=== PATIENT | female | born 1930 | race Caucasian/White ===

== ENCOUNTER 2017-12-18 13:17 | Observation (INO) | payer MEDICARE, MEDICAID ==
[~2017-12-18] VITALS: Ht 162.6 cm; Wt 72.3 kg
[~2017-12-18 13:17] MED LIST: ACET-461 PO; ALBU17AE3; ALBU2.5V4 IH; ALEN70TA47 PO; ALN10T; ALPR.25T; ALPR0.25 PO; AMLO2.5T PO; AMLO5TAB2 GT; AMLO5TAB2 PO; AMLO5TAB4 PO; AMOX-355 PO; AZIT250T PO; BUSP10TA95 PO; CALC-656 PO; CEFT1VIA58 IM; CHOL100011 PO; CITA10TA; CITA20TA4 PO; CITA20TA7 PO; CLD600T; DIPH25TA82 PO; DNPZ10T PO; DOCU100T7 PO; DONE10TA41 PO; DORZ10DR24 OU; DORZ10DR6 OU; ENAL10TA PO; ENAL20TA; ENLP10T GT; ENLP10T PO; FLC1T PO; FOLI0.8T PO; FOLI1TAB24 PO; GUAI-370; GUAI400T71 PO; GUAI600T43 PO; HCT25T PO; HYDR25TA4 PO; KETO75CA; LATA2.5D19 OU; LATA2.5D5 OU; LEVO750T6; MEMA10TA PO; MEMA28CA PO; METH2.5T PO; METO-370 PO; METO50TA7 PO; MTX2.5T PO; MULT-608 PO; NF-SOLIF5T PO; POLY10DR OP; PRED5TAB; SOLI5TAB4 PO; TRAM50TA2 PO; TROS20TA3 PO
--- OUTSIDE RECORDS SUMMARY | 2017-12-18 13:23 | XMS REPORT | Continuity of Care Document ---
Author Author [facility] Organization [facility] Address Unknown Phone Unavailable Allergies Active Description Code Type Severity Reaction Onset Reported/Identified Relationship to Patient Clinical Status Yes meperidine [id number] Drug Allergy Mild N/A 01/27/2010 Medications There is no data. Problems Date Dx Coded Attending Type Code Diagnosis Diagnosed By 03/08/2015 LLOYD MATHIS MD Ot 038.42 03/08/2015 LLOYD MATHIS MD Ot 275.2 03/08/2015 LLOYD MATHIS MD Ot 276.8 03/08/2015 LLOYD MATHIS MD Ot 294.20 03/08/2015 LLOYD MATHIS MD Ot 300.00 03/08/2015 LLOYD MATHIS MD Ot 362.50 03/08/2015 LLOYD MATHIS MD Ot 365.9 03/08/2015 LLOYD MATHIS MD Ot 366.9 03/08/2015 LLOYD MATHIS MD Ot 401.9 03/08/2015 LLOYD MATHIS MD Ot 424.0 03/08/2015 LLOYD MATHIS MD Ot 596.51 03/08/2015 LLOYD MATHIS MD Ot 599.0 03/08/2015 LLOYD MATHIS MD Ot 682.9 03/08/2015 LLOYD MATHIS MD Ot 714.0 03/08/2015 LLOYD MATHIS MD Ot 733.00 03/08/2015 LLOYD MATHIS MD Ot 995.91 03/09/2015 Ot 443.9 03/09/2015 Ot 707.15 03/12/2015 LLOYD MATHIS MD Ot 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 03/12/2015 LLOYD MATHIS MD Ot 041.11 METHICILLIN SUSCEPTIBLE STAPHYLOCOCCUS A 03/12/2015 LLOYD MATHIS MD Ot 275.2 DIS MAGNESIUM METABOLISM 03/12/2015 LLOYD MATHIS MD Ot 276.69 OTHER FLUID OVERLOAD 03/12/2015 LLOYD MATHIS MD Ot 276.8 HYPOPOTASSEMIA 03/12/2015 LLOYD MATHIS MD Ot 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 03/12/2015 LLOYD MATHIS MD Ot 294.20 03/12/2015 LLOYD MATHIS MD Ot 300.00 ANXIETY STATE NOS 03/12/2015 LLOYD MATHIS MD Ot 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 03/12/2015 LLOYD MATHIS MD Ot 362.50 MACULAR DEGENERATION NOS 03/12/2015 LLOYD MATHIS MD Ot 365.9 GLAUCOMA NOS 03/12/2015 LLOYD MATHIS MD Ot 366.9 CATARACT NOS 03/12/2015 LLOYD MATHIS MD Ot 401.9 HYPERTENSION NOS 03/12/2015 LLOYD MATHIS MD Ot 424.0 MITRAL VALVE DISORDER 03/12/2015 LLOYD MATHIS MD Ot 596.51 HYPERTONICITY OF BLADDER 03/12/2015 LLOYD MATHIS MD Ot 599.0 URIN TRACT INFECTION NOS 03/12/2015 LLOYD MATHIS MD Ot 682.6 CELLULITIS OF LEG 03/12/2015 LLOYD MATHIS MD Ot 682.7 03/12/2015 LLOYD MATHIS MD Ot 682.9 03/12/2015 LLOYD MATHIS MD Ot 714.0 RHEUMATOID ARTHRITIS 03/12/2015 LLOYD MATHIS MD Ot 733.00 OSTEOPOROSIS NOS 03/12/2015 LLOYD MATHIS MD Ot 786.09 03/12/2015 LLOYD MATHIS MD Ot 995.91 SEPSIS 03/12/2015 LLOYD MATHIS MD Ot V43.3 04/20/2015 SHANICE RODRIGUEZ MD Ot 440.23 ATHEROSCL MATCH-E-BE-NASH-SHE-WISH BAND ARTER EXTREMITIES W ULC 04/20/2015 SHANICE RODRIGUEZ MD Ot 707.15 ULCER OF OTHER PART OF FOOT 04/20/2015 SHANICE RODRIGUEZ MD Ot 735.4 OTHER HAMMER TOE 04/20/2015 SHANICE RODRIGUEZ MD Ot 440.23 04/20/2015 SHANICE RODRIGUEZ MD Ot 707.15 04/20/2015 SHANICE RDORIGUEZ MD Ot 735.4 05/08/2015 Ot 443.9 05/08/2015 Ot 707.15 11/12/2015 LLOYD MATHIS MD Ot A41.9 11/12/2015 LLOYD MATHIS MD Ot B96.20 UNSP ESCHERICHIA COLI THE CAUSE OF DI 11/12/2015 LLOYD MATHIS MD Ot F02.80 DEMENTIA IN OTH DISEASES CLASSD ELSWHR W 11/12/2015 DEL MEYERS, LLOYD Patten Ot G30.9 ALZHEIMER'S DISEASE, UNSPECIFIED 11/12/2015 DEL MEYERS, LLOYD Patten Ot I10 ESSENTIAL (PRIMARY) HYPERTENSION 11/12/2015 DEL MEYERS, LLOYD Patten Ot I34.1 NONRHEUMATIC MITRAL (VALVE) PROLAPSE 11/12/2015 DEL MEYERS, LLOYD Patten Ot M06.9 RHEUMATOID ARTHRITIS, UNSPECIFIED 11/12/2015 DEL MEYERS, LLOYD Patten Ot N39.0 URINARY TRACT INFECTION, SITE NOT SPECIF 11/13/2015 DEL MEYERS, LLOYD Patten Ot A41.9 11/13/2015 DEL MEYERS, LLOYD Patten Ot F02.80 11/13/2015 DEL MEYERS, LLOYD Patten Ot G30.9 11/13/2015 DEL MEYERS, LLOYD Patten Ot I10 11/13/2015 DEL MEYERS, LLOYD Patten Ot I34.1 11/13/2015 DEL MEYERS, LLOYD Patten Ot M06.9 11/13/2015 DEL MEYERS, LLOYD Patten Ot N39.0 11/13/2015 DEL MEYERS, LLOYD Patten Ot A41.9 11/13/2015 DEL MEYERS, LLOYD Patten Ot F02.80 11/13/2015 DEL MEYERS, LLOYD Patten Ot G30.9 11/13/2015 DEL MEYERS, LLOYD Patten Ot I10 11/13/2015 DEL MEYERS, LLOYD Patten Ot I34.1 11/13/2015 DEL MEYERS, LLOYD Patten Ot M06.9 11/13/2015 DEL MEYERS, LLOYD Patten Ot N39.0 02/22/2016 HUGO MEYERS, ERIN T Ot I44.7 LEFT BUNDLE-BRANCH BLOCK, UNSPECIFIED 02/22/2016 HUGO MEYERS, ERIN T Ot 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 02/22/2016 HUGO MEYERS, ERIN T Ot J20.9 ACUTE BRONCHITIS, UNSPECIFIED 02/22/2016 HUGO MEYERS, ERIN T Ot R09.02 HYPOXEMIA 02/25/2016 HUGO MEYERS, ERIN T Ot I44.7 02/25/2016 HUGO MEYERS, ERIN T Ot I73.00 02/25/2016 HUGO MEYERS, ERIN T Ot J20.9 02/25/2016 HUGO MEYERS, ERIN T Ot R09.02 08/13/2016 Ot V76.12 OTH SCREEN MAMMO-MALIGN NEOPLASM OF NAYELY 08/13/2016 Ot 429.3 CARDIOMEGALY 08/13/2016 Ot 518.89 OTHER DISEASES OF LUNG, NEC 08/13/2016 LLOYD MATHIS MD Ot V76.12 OTH SCREEN MAMMO-MALIGN NEOPLASM OF NAYELY 08/13/2016 LLOYD MATHIS MD Ot 331.9 CEREB DEGENERATION NOS 08/13/2016 LLOYD MATHIS MD Ot V15.88 HISTORY OF FALL 08/13/2016 Ot 443.9 PERIPH VASCULAR DIS NOS 08/13/2016 Ot 707.15 ULCER OF OTHER PART OF FOOT 08/13/2016 Ot V76.12 OTH SCREEN MAMMO-MALIGN NEOPLASM OF NAYELY 08/13/2016 Ot 429.3 CARDIOMEGALY 08/13/2016 Ot 518.89 OTHER DISEASES OF LUNG, NEC 08/13/2016 LLOYD MATHIS MD Ot V76.12 OTH SCREEN MAMMO-MALIGN NEOPLASM OF NAYELY 08/13/2016 LLOYD MATHIS MD Ot 331.9 CEREB DEGENERATION NOS 08/13/2016 LLOYD MATHIS MD Ot V15.88 HISTORY OF FALL 08/13/2016 Ot 443.9 PERIPH VASCULAR DIS NOS 08/13/2016 Ot 707.15 ULCER OF OTHER PART OF FOOT 09/05/2016 LLOYD MATHIS MD Ot J44.9 CHRONIC OBSTRUCTIVE PULMONARY DISEASE, U 09/10/2016 LLOYD MATHIS MD Ot J44.9 CHRONIC OBSTRUCTIVE PULMONARY DISEASE, U 02/26/2017 LLOYD MATHIS MD Ot J44.9 CHRONIC OBSTRUCTIVE PULMONARY DISEASE, U Procedures Code Description Performed By Performed On 86.04 03/10/2015 Results There is no data. Encounters ACCT No. Visit Date/Time Discharge Status Pt. Type Provider Facility Loc./Unit Complaint [id number] 08/13/2016 09:51:00 08/13/2016 23:59:59 CLS Outpatient LLOYD MATHIS MD [facility] RT COPD [id number] 02/22/2016 14:19:00 02/22/2016 17:45:00 DIS Emergency ERIN ARIAS MD [facility] ER LOW O2 [id number] 11/11/2015 13:47:00 11/12/2015 13:00:00 DIS Inpatient LLOYD MATHIS MD [facility] 4TH UTI;FEVER [id number] 04/03/2015 13:05:00 04/20/2015 14:00:00 DIS Outpatient SHANICE RODRIGUEZ MD [facility] WOUNDCARE [id number] 03/06/2015 12:43:00 03/12/2015 15:10:00 DIS Inpatient LLOYD MATHIS MD [facility] SURGICAL SEPSIS UTI [id number] 10/20/2013 14:54:00 10/20/2013 23:59:59 CLS Outpatient LLOYD MATHIS MD [facility] RAD FALLS [id number] 07/25/2013 08:30:00 07/25/2013 23:59:59 CLS Outpatient LLOYD MATHIS MD [facility] RAD SCREENING [id number] 02/13/2015 11:55:00 Document Registration [id number] 01/20/2012 14:22:00 Document Registration [id number] 07/07/2011 10:53:00 Document Registration
[2017-12-18] MEDS ORDERED: LACTATED RINGERS 1,000 ML IV ONE (13:25)
--- NOTE | 2017-12-18 13:30 | ED General ---
General Stated Complaint: AMS Source of Information: Patient, EMS, Shelter Records Exam Limitations: Physical Impairments (clinical condition) History of Present Illness Date Seen by Provider: Dec 18, 2017 Time Seen by Provider: 13:18 Initial Comments Patient presents to ER by EMS with chief complaint that for the past week or so per nursing staff at the [place] [facility] she has been having us that he decline in function and last night she sat up in a chair talking to somebody was not there anymore. This is a change from baseline for her although she does have a history of late stage dementia. Patient has had an influenza test this morning at the [place] [facility] that was negative including her paperwork as well as blood work and urine drawn from the doctor's office yesterday. The urine showed budding yeast only and she was given a single dose of Diflucan. Patient is only able to give a very limited review of systems she has not pain anywhere nor does she feel like she needs to throw up. She does know what town she is from but not sure of her address her the name of the [place] [facility]. EMS reports the patient is having tremendous amount of pain in his vocalizations with any modest touch such as blood pressure cuff or when moving her from bed to gurney. Allergies and Home Medications Allergies Coded Allergies: meperidine (Unverified Allergy, Mild, 01/27/10) Home Medications Acetaminophen 500 Mg Tablet, 500 MG PO 0800,1200,1600,2000, (Reported) Acetaminophen 500 Mg Tablet, 500-1,000 MG PO Q6H PRN for PAIN, (Reported) TAKES 1 TO 2 (500MG) TABLETS Albuterol Sulfate 2.5 Mg/3 Ml Vial.neb, 2.5 MG IH Q6H, #30 And every 2 hours as needed for wheezing or shortness of breath Prescribed by: ERIN NGUYEN on 02/22/161711 Alendronate Sodium 70 Mg Tablet, 70 MG PO WEEKLY ON THURSDAY, (Reported) Alprazolam 0.25 Mg Tablet, 0.25 MG PO Q8H PRN for ANXIETY, (Reported) Amlodipine Besylate 5 Mg Tablet, 5 MG PO DAILY, (Reported) Azithromycin 250 Mg Tablet, 250 MG PO DAILY, #4 Prescribed by: ERIN NGUYEN on 02/22/161711 Buspirone HCl 10 Mg Tablet, 10 MG PO BID, (Reported) Calcium Carbonate/Vitamin D3 1 Each Tablet, 1 TAB PO DAILY, (Reported) Ceftriaxone Sodium 1 Gm Vial, 1 GM IM DAILY, (Reported) STARTED 02/21/16 FOR A 7 DAY THERAPY Cholecalciferol 1,000 Unit Capsule, 1,000 UNIT PO DAILY, (Reported) Citalopram Hydrobromide 20 Mg Tablet, 20 MG PO DAILY, (Reported) Docusate Sodium 100 Mg Tablet, 100 MG PO DAILY, (Reported) Donepezil HCl 10 Mg Tablet, 10 MG PO HS, (Reported) Dorzolamide HCl/Timolol Maleat 10 Ml Drops, 1 DROP OU BID, (Reported) Enalapril Maleate 10 Mg Tablet, 10 MG PO BID, (Reported) Folic Acid 1 Mg Tablet, 1 MG PO DAILY, (Reported) Guaifenesin 600 Mg Tab.er.12h, 600 MG PO TID, (Reported) Guaifenesin 400 Mg Tablet, 400 MG PO Q4H PRN for CONGESTION, #30 Prescribed by: ERIN NGUYEN on 02/22/16 1712 Hydrochlorothiazide 25 Mg Tablet, 25 MG PO DAILY, (Reported) Latanoprost 2.5 Ml Drops, 1 DROP OU HS, (Reported) Memantine HCl 28 Mg Cap.spr.24, 28 MG PO DAILY, (Reported) Methotrexate Sodium 2.5 Mg Tablet, 15 MG PO WEEKLY ON THURSDAY, (Reported) TAKES 6 (2.5 MG) TABLETS Metoprolol Succinate 50 Mg Tab.er.24h, 50 MG PO DAILY, (Reported) Multivitamins 1 Tab Tablet, 1 TAB PO DAILY, (Reported) Polymyxin B Sulfate/Tmp 10 Ml Drops, OP UD, (Reported) FOUR TIMES DAILY X3 DAYS PRIOR TO EYE INJECTION, THEN DIRECTED. Solifenacin Succinate 5 Mg Tablet, 5 MG PO DAILY, (Reported) Tramadol HCl 50 Mg Tablet, 25-50 MG PO Q8H PRN for PAIN, (Reported) TAKES 1/2 TO 1 OF A (50 MG) TABLET Constitutional: No chills, No fever, malaise, No weakness EENTM: No hearing loss, No ear pain Respiratory: No cough, No short of breath Cardiovascular: No chest pain, No palpitations Gastrointestinal: No constipation, No diarrhea, No nausea Genitourinary: No discharge, No dysuria Past Orpbwif-Arnajg-Ypwzti Hx Immunizations Up To Date Tetanus Booster (TDap): Unknown Date of Pneumonia Vaccine: Jul 31, 2008 Date of Influenza Vaccine: Sep 16, 2015 Seasonal Allergies Seasonal Allergies: No Surgeries Surgeries: Eye Surgery Cardiovascular Cardiac Disorders: Hypertension, Valvular Heart Disease Neurological Neurological Disorders: Dementia Reproductive System Hx Reproductive Disorders: No Female Reproductive Disorders: Denies Genitourinary Genitourinary Disorders: Bladder Infection, UTI-Chronic Gastrointestinal Gastrointestinal Disorders: Chronic Constipation Musculoskeletal Musculoskeletal Disorders: Osteoporosis, Rheumatoid Arthritis HEENT HEENT Disorders: Macular Degeneration, Glaucoma Loss of Vision: Denies Hearing Impairment: Denies Psychosocial Behavioral Health Disorders: Depression Family Medical History Significant Family History: No Pertinent Family Hx Family Medial History: Patient reports no known family medical history. Physical Exam-Suspected Sepsis Physical Exam Vital Signs Vital Sign - Last 12Hours 12/18/17 14:10 Temp 97.9 Pulse 70 Resp 18 B/P (MAP) 161/72 (101) Pulse Ox 95 Capillary Refill : General Appearance: Thin (edontulous) Eyes: Bilateral Eye Normal Inspection, Bilateral Eye PERRL, Bilateral Eye EOMI HEENT: PERRL/EOMI, TMs Normal, Normal ENT Inspection, Pharynx Normal (mucous membranes dry) Neck: Full Range of Motion, Normal Inspection, Non Tender, Supple Respiratory: Chest Non Tender, Lungs Clear, Normal Breath Sounds, No Accessory Muscle Use, No Respiratory Distress Cardiovascular: Regular Rate, Rhythm, No Edema Gastrointestinal: Normal Bowel Sounds, No Organomegaly Extremity: Normal Capillary Refill, No Pedal Edema Neurologic/Psychiatric: Alert, Oriented x3 Skin: normal color, warm/dry Focused Exam Evaluation Lactate Level Laboratory Tests 12/18/17 13:25: Lactic Acid Level 1.33 Lactic Acid Level Laboratory Tests Test 12/18/17 13:25 Lactic Acid Level 1.33 MMOL/L (0.50-2.00) Progress/Results/Core Measures Suspected Sepsis SIRS Temperature: Pulse: Respiratory Rate: Laboratory Tests 12/18/17 13:25: White Blood Count 9.1 Blood Pressure / Mean: Laboratory Tests 12/18/17 13:25: Lactic Acid Level 1.33 Laboratory Tests 12/18/17 13:25: Creatinine 1.01, Platelet Count 228, Total Bilirubin 0.4 Results/Orders Lab Results Laboratory Tests Test 12/18/17 13:25 12/18/17 13:35 Range/Units White Blood Count 9.1 4.3-11.0 10^3/uL Red Blood Count 3.92 L 4.35-5.85 10^6/uL Hemoglobin 12.3 11.5-16.0 G/DL Hematocrit 39 35-52 % Mean Corpuscular Volume 99 80-99 FL Mean Corpuscular Hemoglobin 31 25-34 PG Mean Corpuscular Hemoglobin Concent 32 32-36 G/DL Red Cell Distribution Width 17.0 H 10.0-14.5 % Platelet Count 228 130-400 10^3/uL Mean Platelet Volume 9.5 7.4-10.4 FL Neutrophils (%) (Auto) 75 42-75 % Lymphocytes (%) (Auto) 16 12-44 % Monocytes (%) (Auto) 7 0-12 % Eosinophils (%) (Auto) 1 0-10 % Basophils (%) (Auto) 0 0-10 % Neutrophils # (Auto) 6.9 1.8-7.8 X 10^3 Lymphocytes # (Auto) 1.5 1.0-4.0 X 10^3 Monocytes # (Auto) 0.7 0.0-1.0 X 10^3 Eosinophils # (Auto) 0.1 0.0-0.3 10^3/uL Basophils # (Auto) 0.0 0.0-0.1 10^3/uL Sodium Level 141 135-145 MMOL/L Potassium Level 5.1 H 3.6-5.0 MMOL/L Chloride Level 105 98-107 MMOL/L Carbon Dioxide Level 25 21-32 MMOL/L Anion Gap 11 5-14 MMOL/L Blood Urea Nitrogen 38 H 7-18 MG/DL Creatinine 1.01 0.60-1.30 MG/DL Estimat Glomerular Filtration Rate 52 BUN/Creatinine Ratio 38 Glucose Level 98 70-105 MG/DL Lactic Acid Level 1.33 0.50-2.00 MMOL/L Calcium Level 10.0 8.5-10.1 MG/DL Total Bilirubin 0.4 0.1-1.0 MG/DL Aspartate Amino Transf (AST/SGOT) 16 5-34 U/L Alanine Aminotransferase (ALT/SGPT) 12 0-55 U/L Alkaline Phosphatase 73 40-136 U/L Total Protein 6.5 6.4-8.2 GM/DL Albumin 3.2 3.2-4.5 GM/DL Urine Color YELLOW Urine Clarity CLOUDY H Urine pH 6 5-9 Urine Specific Gantt 1.015 L 1.016-1.022 Urine Protein 2+ H NEGATIVE Urine Glucose (UA) NEGATIVE NEGATIVE Urine Ketones NEGATIVE NEGATIVE Urine Nitrite NEGATIVE NEGATIVE Urine Bilirubin NEGATIVE NEGATIVE Urine Urobilinogen NORMAL NORMAL MG/DL Urine Leukocyte Esterase 3+ H NEGATIVE Urine RBC (Auto) 5+ H NEGATIVE Urine RBC >100 H /HPF Urine WBC TNTC H /HPF Urine Crystals NONE /LPF Urine Bacteria MODERATE H /HPF Urine Casts NONE /LPF Urine Mucus NEGATIVE /LPF Urine Culture Indicated YES Micro Results Microbiology 12/18/17 Influenza Types A,B Antigen (BUD) - Final, Complete My Orders Orders - CHRISTO PRASAD Cbc With Automated Diff (12/18/17 13:25) Comprehensive Metabolic Panel (12/18/17 13:25) Lactic Acid Analyzer (12/18/17 13:25) Ua Culture If Indicated (12/18/17 13:25) Blood Culture (12/18/17 13:25) Influenza A And B Antigens (12/18/17 13:25) Chest 1 View, Ap/Pa Only (12/18/17 13:25) Saline Lock/Iv-Start (12/18/17 13:25) Lactated Ringers (Lr 1000 Ml Iv Solution (12/18/17 13:25) Urine Culture (12/18/17 13:35) Medications Given in ED Current Medications Medications Dose Ordered Sig/Corby Route Start Time Stop Time Status Last Admin Dose Admin Lactated Ringer's 1,000 ml @ 0 mls/hr Q0M ONCE IV 12/18/17 13:25 12/18/17 13:27 DC 12/18/17 13:43 0 MLS/HR Vital Signs/I&O Vital Sign - Last 12Hours 12/18/17 14:10 Temp 97.9 Pulse 70 Resp 18 B/P (MAP) 161/72 (101) Pulse Ox 95 Capillary Refill : Departure Communication (Admissions) Time/Spoke to Admitting Phy: 17:20 Communication Discussed the case with Dr. Nicole and she agrees with Rocephin and observation stay. Impression Impression: Primary Impression: Urinary tract infection Qualified Codes: N30.00 - Acute cystitis without hematuria Additional Impression: Delirium Disposition: ADMITTED INPATIENT Condition: Stable Admissions Decision to Admit Reason: Admit from ER (General) Decision to Admit/Date: Dec 18, 2017 Time/Decision to Admit Time: 17:21 Departure-Patient Inst. Referrals: LLOYD MATHIS MD (PCP/Family) Primary Care Physician Copy Copies To 1: LLOYD MATHIS MD, TITUS J Dec 18, 2017 13:30
[2017-12-18 13:43] LABS: BASOPHILS % (AUTO) 0 % (0-10); EOSINOPHILS # (AUTO) 0.1 10^3/uL (0.0-0.3); EOSINOPHILS % (AUTO) 1 % (0-10); HEMATOCRIT 39 % (35-52); HEMOGLOBIN 12.3 G/DL (11.5-16.0); LYMPHOCYTES # (AUTO) 1.5 X 10^3 (1.0-4.0); LYMPHOCYTES % (AUTO) 16 % (12-44); MEAN CORPUSCULAR HEMOGLOBIN 31 PG (25-34); MEAN CORPUSCULAR HGB CONC 32 G/DL (32-36); MEAN CORPUSCULAR VOLUME 99 FL (80-99); MEAN PLATELET VOLUME 9.5 FL (7.4-10.4); MONOCYTES # (AUTO) 0.7 X 10^3 (0.0-1.0); MONOCYTES % (AUTO) 7 % (0-12); NEUTROPHILS # (AUTO) 6.9 X 10^3 (1.8-7.8); NEUTROPHILS % (AUTO) 75 % (42-75); PLATELET COUNT 228 10^3/uL (130-400); RED BLOOD COUNT 3.92 10^6/uL (4.35-5.85); WHITE BLOOD COUNT 9.1 10^3/uL (4.3-11.0)
[2017-12-18 13:53] LABS: BACTERIA,URINE MODERATE /HPF; BILIRUBIN,URINE NEGATIVE (NEGATIVE); CLARITY,URINE CLOUDY; COLOR,URINE YELLOW; GLUCOSE, URINE (UA) NEGATIVE (NEGATIVE); KETONES,URINE NEGATIVE (NEGATIVE); LEUKOCYTE ESTERASE ,URINE 3+ (NEGATIVE); NITRITE,URINE NEGATIVE (NEGATIVE); PH,URINE 6 (5-9); PROTEIN,URINE 2+ (NEGATIVE); RBC,URINE >100 /HPF; UROBILINOGEN,URINE NORMAL (NORMAL); WBC,URINE TNTC /HPF
[2017-12-18 14:11] LABS: ALBUMIN 3.2 GM/DL (3.2-4.5); BILIRUBIN,TOTAL 0.4 MG/DL (0.1-1.0); CREATININE SERUM 1.01 MG/DL (0.60-1.30); POTASSIUM 5.1 MMOL/L (3.6-5.0); TOTAL PROTEIN 6.5 GM/DL (6.4-8.2)
--- NOTE | 2017-12-18 14:51 | Diagnostic Imaging Report ---
INDICATION: Altered mental status. EXAMINATION: Portable chest at 2:32 p.m. FINDINGS: Heart size and pulmonary vascularity are normal. Lungs are clear. There are no effusions or pneumothoraces. There is advanced degenerative change in both shoulders, worse on the right than on the left. IMPRESSION: Severe degenerative changes of both shoulders. No acute abnormality is seen in the chest. Dictated by: Dictated on workstation # [id number]
--- OUTSIDE RECORDS SUMMARY | 2017-12-18 17:48 | XMS REPORT | Continuity of Care Document ---
Author Author [facility] Organization [facility] Address Unknown Phone Unavailable Allergies Active Description Code Type Severity Reaction Onset Reported/Identified Relationship to Patient Clinical Status Yes meperidine [id number] Drug Allergy Mild N/A 01/27/2010 Medications There [...] 04/20/2015 SHANICE RODRIGUEZ MD Ot 440.23 ATHEROSCL OSAGE ARTER EXTREMITIES W ULC 04/20/2015 SHANICE RODRIGUEZ MD Ot 707.15 ULCER OF OTHER PART OF FOOT 04/20/2015 SHANICE RODRIGUEZ MD Ot 735.4 OTHER HAMMER TOE 04/20/2015 SHANICE RODRIGUEZ MD Ot 440.23 04/20/2015 SHANICE RODRIGUEZ MD Ot 707.15 04/20/2015 SHANICE RODRIGUEZ MD Ot 735.4 05/08/2015 Ot 443.9 05/08/2015 [...] DEL MEYERS, LLOYD Patten Ot A41.9 11/13/2015 DLE MEYERS, LLOYD Patten Ot F02.80 11/13/2015 DEL [...] MEYERS, ERIN T Ot I44.7 02/25/2016 HUGO MEEYRS, ERIN T Ot I73.00 02/25/2016 HUGO MEYERS, [...] Performed By Performed On 86.04 03/10/2015 Results Test Result Range Complete blood count (CBC) with automated white blood cell (WBC) differential - 12/18/17 13:25 Blood leukocytes automated count (number/volume) 9.1 10*3/uL 4.3-11.0 Blood erythrocytes automated count (number/volume) 3.92 10*6/uL 4.35-5.85 Venous blood hemoglobin measurement (mass/volume) 12.3 g/dL 11.5-16.0 Blood hematocrit (volume fraction) 39 % 35-52 Automated erythrocyte mean corpuscular volume 99 [foz_us] 80-99 Automated erythrocyte mean corpuscular hemoglobin (mass per erythrocyte) 31 pg 25-34 Automated erythrocyte mean corpuscular hemoglobin concentration measurement ( mass/volume) 32 g/dL 32-36 Automated erythrocyte distribution width ratio 17.0 % 10.0-14.5 Automated blood platelet count (count/volume) 228 10*3/uL 130-400 Automated blood platelet mean volume measurement 9.5 [foz_us] 7.4-10.4 Automated blood neutrophils/100 leukocytes 75 % 42-75 Automated blood lymphocytes/100 leukocytes 16 % 12-44 Blood monocytes/100 leukocytes 7 % 0-12 Automated blood eosinophils/100 leukocytes 1 % 0-10 Automated blood basophils/100 leukocytes 0 % 0-10 Blood neutrophils automated count (number/volume) 6.9 10*3 1.8-7.8 Blood lymphocytes automated count (number/volume) 1.5 10*3 1.0-4.0 Blood monocytes automated count (number/volume) 0.7 10*3 0.0-1.0 Automated eosinophil count 0.1 10*3/uL 0.0-0.3 Automated blood basophil count (count/volume) 0.0 10*3/uL 0.0-0.1 Blood lactic acid measurement (moles/volume) - 12/18/17 13:25 Blood lactic acid measurement (moles/volume) 1.33 mmol/L 0.50-2.00 Comprehensive metabolic panel - 12/18/17 13:25 Serum or plasma sodium measurement (moles/volume) 141 mmol/L 135-145 Serum or plasma potassium measurement (moles/volume) 5.1 mmol/L 3.6-5.0 Serum or plasma chloride measurement (moles/volume) 105 mmol/L 98-107 Carbon dioxide 25 mmol/L 21-32 Serum or plasma anion gap determination (moles/volume) 11 mmol/L 5-14 Serum or plasma urea nitrogen measurement (mass/volume) 38 mg/dL 7-18 Serum or plasma creatinine measurement (mass/volume) 1.01 mg/dL 0.60-1.30 Serum or plasma urea nitrogen/creatinine mass ratio 38 NRG Serum or plasma creatinine measurement with calculation of estimated glomerular filtration rate 52 NRG Serum or plasma glucose measurement (mass/volume) 98 mg/dL 70-105 Serum or plasma calcium measurement (mass/volume) 10.0 mg/dL 8.5-10.1 Serum or plasma total bilirubin measurement (mass/volume) 0.4 mg/dL 0.1-1.0 Serum or plasma alkaline phosphatase measurement (enzymatic activity/volume) 73 U/L 40-136 Serum or plasma aspartate aminotransferase measurement (enzymatic activity/ volume) 16 U/L 5-34 Serum or plasma alanine aminotransferase measurement (enzymatic activity/volume ) 12 U/L 0-55 Serum or plasma protein measurement (mass/volume) 6.5 g/dL 6.4-8.2 Serum or plasma albumin measurement (mass/volume) 3.2 g/dL 3.2-4.5 Complete urinalysis with reflex to culture - 12/18/17 13:35 Urine color determination YELLOW NRG Urine clarity determination CLOUDY NRG Urine pH measurement by test strip 6 5-9 Specific gravity of urine by test strip 1.015 1.016- 1.022 Urine protein assay by test strip, semi-quantitative 2+ NEGATIVE Urine glucose detection by automated test strip NEGATIVE NEGATIVE Erythrocytes detection in urine sediment by light microscopy 5+ NEGATIVE Urine ketones detection by automated test strip NEGATIVE NEGATIVE Urine nitrite detection by test strip NEGATIVE NEGATIVE Urine total bilirubin detection by test strip NEGATIVE NEGATIVE Urine urobilinogen measurement by automated test strip (mass/volume) NORMAL NORMAL Urine leukocyte esterase detection by dipstick 3+ NEGATIVE Automated urine sediment erythrocyte count by microscopy (number/high power field) > [HPF] NRG Automated urine sediment leukocyte count by microscopy (number/high power field ) TNTC NRG Bacteria detection in urine sediment by light microscopy MODERATE NRG Crystals detection in urine sediment by light microscopy NONE NRG Casts detection in urine sediment by light microscopy NONE NRG Mucus detection in urine sediment by light microscopy NEGATIVE NRG Complete urinalysis with reflex to culture YES NRG Influenza virus A and B antigen detection - 12/18/17 13:41 FLU RESULT NEGATIVE FOR INFLUENZA A AND B ANTIGENS BY IA NRG Encounters ACCT No. Visit Date/Time Discharge Status Pt. Type Provider Facility Loc./Unit Complaint [id number] 08/13/2016 09:51:00 08/13/2016 23:59:59 CLS Outpatient DEL MEYERS, LLOYD Patten [facility] RT COPD [id number] 02/22/2016 14:19:00 02/22/2016 17:45:00 DIS Emergency HUGO MEYERS, ERIN De Luna [facility] ER LOW O2 [id number] 11/11/2015 13:47:00 11/12/2015 13:00:00 DIS Inpatient LLOYD MATHIS MD [facility] 4TH UTI;FEVER [id number] 04/03/2015 13:05:00 04/20/2015 14:00:00 DIS Outpatient SHANICE RODRIGUEZ MD [facility] WOUNDCARE [id number] 03/06/2015 12:43:00 03/12/2015 15:10:00 DIS Inpatient LLOYD MATHIS MD [facility] SURGICAL SEPSIS UTI [id number] 10/20/2013 14:54:00 10/20/2013 23:59:59 CLS Outpatient LLOYD MATHIS MD [facility] RAD FALLS [id number] 07/25/2013 08:30:00 07/25/2013 23:59:59 CLS Outpatient LLOYD MATHIS MD [facility] RAD SCREENING [id number] 12/18/2017 17:20:00 ACT Inpatient TAZ BOYD MD [facility] 4TH UTI,DELERIUM HYPOACTIVE [id number] 02/13/2015 11:55:00 Document Registration [id number] 01/20/2012 14:22:00 Document Registration [id number] 07/07/2011 10:53:00 Document Registration
[2017-12-18] MEDS ORDERED: FLUT1DIS26 IH (17:59)
[2017-12-18] MEDS ORDERED: MULT1TAB69 PO (17:59)
[2017-12-18] MEDS ORDERED: MENT4OIN TP (17:59)
[2017-12-18] MEDS ORDERED: DOCU100C37 PO (17:59)
[2017-12-18] MEDS ORDERED: CHOL10007 PO (17:59)
[2017-12-18] MEDS ORDERED: ENAL10TA75 PO (17:59)
[2017-12-18] MEDS ORDERED: LORA10TA7 PO (17:59)
[2017-12-18] MEDS ORDERED: GUAI5SYR PO (17:59)
[2017-12-18] MEDS ORDERED: DORZ10DR22 OU (17:59)
[2017-12-18] MEDS ORDERED: ALBU2.5V4 NEB (17:59)
[2017-12-18] MEDS ORDERED: CALC-654 PO (17:59)
[2017-12-18] MEDS ORDERED: LORA0.5T PO (17:59)
[2017-12-18] MEDS ORDERED: ACET-168 PO (17:59)
[2017-12-18] MEDS ORDERED: FLUC100T6 PO (18:00)
[2017-12-18] MEDS ORDERED: TRAM50TA2 PO (18:03)
[2017-12-18] MEDS ORDERED: ACETAMINOPHEN 500 MG TAB (TYLENOL) PO PRN (18:30)
[2017-12-18] MEDS ORDERED: CATHETER FLUSH 10 ML SYR IV PRN (18:30)
[2017-12-18] MEDS ORDERED: ONDANSETRON 4 MG/2 ML (SDV) Z0FRAN IV PRN (18:30)
[2017-12-18] MEDS: 1/2 NS IV SOLUTION 1,000 ML IV SCH (18:45)
[2017-12-18] MEDS: cefTRIAXone 1 GM/D5W 50 ML IVPB IV SCH ×2 (18:45)
[2017-12-18 19:54] VITALS: BP 153/75
[2017-12-19 00:10] VITALS: BP 140/65
[2017-12-19] MEDS: 1/2 NS IV SOLUTION 1,000 ML IV SCH ×5 (04:03→22:24)
[2017-12-19 04:05] VITALS: BP 159/71
[2017-12-19 05:19] LABS: BASOPHILS % (AUTO) 0 % (0-10); EOSINOPHILS # (AUTO) 0.1 10^3/uL (0.0-0.3); EOSINOPHILS % (AUTO) 1 % (0-10); HEMATOCRIT 36 % (35-52); HEMOGLOBIN 11.6 G/DL (11.5-16.0); LYMPHOCYTES # (AUTO) 1.2 X 10^3 (1.0-4.0); LYMPHOCYTES % (AUTO) 14 % (12-44); MEAN CORPUSCULAR HEMOGLOBIN 31 PG (25-34); MEAN CORPUSCULAR HGB CONC 32 G/DL (32-36); MEAN CORPUSCULAR VOLUME 98 FL (80-99); MEAN PLATELET VOLUME 9.4 FL (7.4-10.4); MONOCYTES # (AUTO) 0.7 X 10^3 (0.0-1.0); MONOCYTES % (AUTO) 7 % (0-12); NEUTROPHILS # (AUTO) 6.9 X 10^3 (1.8-7.8); NEUTROPHILS % (AUTO) 78 % (42-75); PLATELET COUNT 213 10^3/uL (130-400); RED CELL DISTRIBUTION WIDTH 16.5 % (10.0-14.5); WHITE BLOOD COUNT 8.9 10^3/uL (4.3-11.0)
[2017-12-19 05:49] LABS: BUN/CREATININE RATIO 35; CALCIUM 9.6 MG/DL (8.5-10.1); CARBON DIOXIDE 23 MMOL/L (21-32); CHLORIDE 105 MMOL/L (98-107); CREATININE SERUM 0.79 MG/DL (0.60-1.30); GFR ESTIMATED > 60; GLUCOSE 102 MG/DL (70-105); POTASSIUM 4.5 MMOL/L (3.6-5.0); SODIUM 138 MMOL/L (135-145)
[2017-12-19 08:00] VITALS: BP 171/77
[2017-12-19] MEDS: cefTRIAXone 1 GM/D5W 50 ML IVPB IV SCH ×2 (08:41)
--- NOTE | 2017-12-19 10:06 | History & Physical-Hospitalist ---
HPI History of Present Illness: HPI/Chief Complaint Pt is an 87yoCF with a PMH of dementia, HTN, and RA who presented from [facility] for evaluation of altered mental status. She is unable to provide me much history from yesterday but review of notes states she was taking to someone who was not there which is a change from her baseline mentation. She denies any complaints today. She denies any medical problems or that she takes any medications. She is aware of where she is and where she lives though. Otherwise ROS is very limited. She denies any pain. Source: patient Exam Limitations: clinical condition (dementia) Date Seen 12/19/17 Time Seen by Provider: 09:30 Attending Physician Taz Nicole MD PCP Joaqumi Diaz MD Referring Physician Date of Admission Dec 18, 2017 at 5:20 pm Home Medications & Allergies Home Medications Reviewed patient Home Medication Reconciliation Form Allergies Allergies Coded Allergies meperidine (Unverified Allergy, Mild, 01/27/10) Past Lqwwzfh-Jqxunx-Ykwpmi Hx Patient Social History Employed/Student: retired Alcohol Use: Denies Use Recreational Drug Use: No Smoking Status: Former Smoker Former Smoker, Quit: Nov 30, 2001 Type Used: Cigarettes Physical Abuse Screen: No Sexual Abuse: No Recent Foreign Travel: No Contact w/other who traveled: No Recent Hopitalizations: No Recent Infectious Disease Expo: No Immunizations Up To Date Tetanus Booster (TDap): Unknown Date of Pneumonia Vaccine: Jul 31, 2008 Date of Influenza Vaccine: Sep 16, 2015 Seasonal Allergies Seasonal Allergies: No Surgeries Yes (HEMORROID SURGERY, AND BILAT ARTHROSCOPIC KNEE) Eye Surgery Respiratory Yes (nocturnal hypoxia requiring supplemental oxygen) Cardiovascular Yes Hypertension, 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) Dementia Reproductive System Hx Reproductive Disorders: No Female Reproductive Disorders: Denies Genitourinary Bladder Infection, UTI-Chronic Gastrointestinal Yes Chronic Constipation Musculoskeletal Yes (polyarthritis) Osteoporosis, Arthritis, Rheumatoid Arthritis Endocrine History of Endocrine Disorders: No HEENT History of HEENT Disorders: Yes HEENT Disorders: Macular Degeneration, Glaucoma Loss of Vision: Denies Hearing Impairment: Denies Cancer No Psychosocial History of Psychiatric Problem: Yes Behavioral Health Disorders: Depression Integumentary History of Skin or Integumenta: No Blood Transfusions History of Blood Disorders: No Family Medical History Significant Family History: No Pertinent Family Hx Family Hx: Patient reports no known family medical history. Review of Systems Constitutional: No chills, No fever EENTM: No mouth pain, No throat pain Respiratory: No dyspnea on exertion, No short of breath Cardiovascular: No chest pain, No palpitations Gastrointestinal: No abdominal pain, No constipation, No diarrhea, No nausea, No vomiting Genitourinary: No dysuria, No frequency Musculoskeletal: no symptoms reported Skin: no symptoms reported Psychiatric/Neurological: Anxiety Other pt denies most symptoms but unsure if accurate given dementia Physical Exam Physical Exam Vital Signs Vital Sign - Last 12Hours 12/18/17 12/18/17 12/18/17 14:10 18:08 18:30 Temp 97.9 Pulse 70 Resp 18 B/P (MAP) 161/72 (101) Pulse Ox 95 O2 Delivery Room Air O2 Flow Rate 2.00 Capillary Refill : Less Than 3 Seconds General Appearance: No Apparent Distress, WD/WN HEENT: PERRL/EOMI, Moist Mucous Membranes Neck: Non Tender, Supple Respiratory: Lungs Clear, No Respiratory Distress Cardiovascular: Regular Rate, Rhythm, No Murmur Gastrointestinal: Normal Bowel Sounds, Non Tender, Soft Extremity: Normal Capillary Refill, No Calf Tenderness Neurologic/Psychiatric: Alert, Oriented x3, Normal Mood/Affect, Other ( oriented to person and place only) Skin: Normal Color, Warm/Dry Results Results/Procedures Lab Laboratory Tests 12/18/17 13:25 12/19/17 05:00 Assessment/Plan Admission Diagnosis UTI Diagnosis/Problems Diagnosis/Problems (1) Urinary tract infection Status: Acute Assessment & Plan: Does not meet sepsis criteria Continue on Rocephin await culture History of recurrent UTIs bacteremic from UTi in 10/2015 Review of previous c/s reveals sensitive to Rocephin Qualifiers: Qualified Codes: N30.00 - Acute cystitis without hematuria (2) Rheumatoid arthritis Assessment & Plan: On Methotrexate Qualifiers: Qualified Codes: M06.9 - Rheumatoid arthritis, unspecified (3) Essential (primary) hypertension Assessment & Plan: Resume home meds (4) Delirium Status: Acute Assessment & Plan: Unsure of baseline with dementia pleasantly confused Reorient as needed Clinical Quality Measures DVT/VTE Risk/Contraindication: Risk Factor Score Per Nursin RFS Level Per Nursing on Admit: 4+=Very High TAZ NICOLE MD Dec 19, 2017 10:06
[2017-12-19] MEDS ORDERED: RT-ALBUTEROL SULF 2.5 MG/3 ML PRE-MIX VIAL IH PRN (10:15)
[2017-12-19] MEDS ORDERED: LORazepam 0.5 MG (ATIVAN) TABLET PO PRN (10:15)
[2017-12-19] MEDS ORDERED: PATIENT MAY USE OWN MEDS, ALL MC SCH (10:30)
[2017-12-19] MEDS: busPIRone 10 MG (BUSPAR) TAB PO SCH ×2 (11:57→21:36)
[2017-12-19] MEDS: guaiFENesin (MUCINEX) 600 MG TAB PO SCH ×2 (11:57→21:36)
[2017-12-19 12:00] VITALS: BP 155/63
[2017-12-19 16:24] VITALS: BP 170/77
[2017-12-19] MEDS: TROSPIUM 20 MG (SANCTURA) TAB PO SCH (16:28)
[2017-12-19 20:45] VITALS: BP 145/68
[2017-12-19] MEDS ORDERED: LATANOPROST 0.005% (XALATAN) OPHTH SOLN 2.5 ML OU SCH (21:00)
[2017-12-19] MEDS: ENALAPRIL 10 MG (VASOTEC) TAB PO SCH (21:36)
[2017-12-19] MEDS: DORZOLAMIDE/TIMOLOL (COSOPT) 2-0.5% 10 ML BTL OU SCH (21:37)
[2017-12-20 00:28] VITALS: BP 144/65
[2017-12-20 03:54] VITALS: BP 142/66
[2017-12-20] MEDS: 1/2 NS IV SOLUTION 1,000 ML IV SCH (04:26)
[2017-12-20] MEDS: TROSPIUM 20 MG (SANCTURA) TAB PO SCH (05:57)
[2017-12-20] MEDS: busPIRone 10 MG (BUSPAR) TAB PO SCH ×2 (07:56→12:42)
[2017-12-20] MEDS: guaiFENesin (MUCINEX) 600 MG TAB PO SCH ×2 (07:56→12:42)
[2017-12-20] MEDS: ENALAPRIL 10 MG (VASOTEC) TAB PO SCH (07:56)
[2017-12-20] MEDS: cefTRIAXone 1 GM/D5W 50 ML IVPB IV SCH ×2 (07:57)
[2017-12-20] MEDS: DORZOLAMIDE/TIMOLOL (COSOPT) 2-0.5% 10 ML BTL OU SCH (07:57)
[2017-12-20 08:47] VITALS: BP 192/84
[2017-12-20] MEDS ORDERED: amLODIPine 5 MG (NORVASC) TAB PO SCH (09:00)
[2017-12-20] MEDS ORDERED: HYDROCHLOROTHIAZIDE 25 MG (HCTZ) TAB PO SCH (09:00)
[2017-12-20] MEDS ORDERED: FOLIC ACID 1 MG TAB PO SCH (09:00)
[2017-12-20] MEDS ORDERED: meTOproloL SUCCINATE 50 MG (TOPROL XL) TAB PO SCH (09:00)
[2017-12-20] MEDS ORDERED: BACI1TAB3 PO (10:52)
[2017-12-20] MEDS ORDERED: CEFD300C3 PO (10:52)
[2017-12-20] MEDS ORDERED: POLY10DR OP (11:04)
[2017-12-20] MEDS ORDERED: INFLUENZA TRIvalent 2017-2018 0.5 ML/45 MCG SYR IM ONE (11:15)
[2017-12-20 12:00] VITALS: BP 137/65
[2017-12-20] MEDS ORDERED: POLY/TRIMETH (POLYTRIM) OPHTH 10 ML BTL OU SCH (12:00)
--- NOTE | 2017-12-20 13:43 | Discharge Summary-Hospitalist ---
Diagnosis/Chief Complaint Date of Admission Dec 18, 2017 at 5:20 pm Date of Discharge Discharge Date: Dec 20, 2017 Admission Diagnosis UTI Discharge Diagnosis (1) Urinary tract infection Status: Acute Assessment & Plan: Does not meet sepsis criteria Rocephin Day 2 Discussed with lab, culture likely is GDS strep Given history of profound illnesses from UTIs and bacteremia will transition to cefdinir for discharge (2) Rheumatoid arthritis Assessment & Plan: On Methotrexate (3) Essential (primary) hypertension Status: Chronic Assessment & Plan: Resume home meds (4) Delirium Status: Resolved Assessment & Plan: Back to baseline per niece Discharge Summary Discharge Physical Examination Allergies: Coded Allergies: meperidine (Unverified Allergy, Mild, 01/27/10) Vitals & I&Os Vital Signs Date Time Temp Pulse Resp B/P (MAP) Pulse Ox O2 Delivery O2 Flow Rate FiO2 12/20/17 13:33 12/20/17 12:00 100.5 72 20 93 Room Air 12/20/17 03:54 2.00 Hospital Course Pt is an 89yoCF with a history of recurrent UTIs who presented to the ER for confusion and was subsequently found to have a UTI. She was admitted for her delirium and started on Rocephin. She responded well and after discuss with micro about her cultures likely growing Group D Strep will continue her on Cefdinir to complete outpatient course. Labs (last 24 hrs) Microbiology 12/18/17 Blood Culture - Preliminary, Resulted No growth 12/18/17 Influenza Types A,B Antigen (BUD) - Final, Complete 12/18/17 Urine Culture - Preliminary, Resulted Nonenterococcus (Chains Cocci) Discharge Home Medications: Active Scripts Active Polytrim Eye Drops (Polymyxin B Sulf/Trimethoprim) 10 Ml Drops 10 Ml OP Q6H 7 Days Probiotic (Bacillus Coagulans) 1 Each Tab.chew 1 Each PO AC 5 Days Cefdinir 300 Mg Capsule 300 Mg PO BID 5 Days Reported Tramadol HCl 50 Mg Tablet 50 Mg PO 1100,1700 Guaifenesin Dm Syrup (Guaifenesin/Dextromethorphan) 5 Ml Syrup 10 Ml PO Q4H PRN [place] Ointment (Menthol/Camphor) 4 Gm Oint...g. TP BID APPLY AND MASSAGE INTO RT SHOULDER Lorazepam 0.5 Mg Tablet 0.5 Mg PO Q8H PRN Loratadine 10 Mg Tablet 10 Mg PO DAILY PRN Albuterol Sulfate 2.5 Mg/3 Ml Vial.neb 2.5 Mg NEB Q2H PRN Advair 250-50 Diskus (Fluticasone/Salmeterol) 1 Each Blst.w.dev 1 Puff IH BID Cosopt Eye Drops (Dorzolamide HCl/Timolol Maleat) 10 Ml Drops 1 Drop OU BID Vasotec (Enalapril Maleate) 10 Mg Tablet 10 Mg PO BID Acetaminophen Extra Strength (Acetaminophen) 500 Mg Tablet 500 Mg PO 0800,1400, 2000 Vitamin D3 (Cholecalciferol (Vitamin D3)) 1,000 Unit Capsule 1,000 Unit PO DAILY Calcium 500 + D Tablet (Calcium Carbonate/Vitamin D3) 1 Each Tablet 1 Tab PO DAILY Docusate Sodium 100 Mg Capsule 100 Mg PO BID Multivitamins (Multivitamin) 1 Each Tablet 1 Tab PO DAILY Mucinex (Guaifenesin) 600 Mg Tab.er.12h 600 Mg PO TID Folic Acid 1 Mg Tablet 1 Mg PO DAILY Vesicare (Solifenacin Succinate) 5 Mg Tablet 5 Mg PO DAILY Tramadol HCl 50 Mg Tablet 25-50 Mg PO Q8H PRN Latanoprost 2.5 Ml Drops 1 Drop OU HS Donepezil HCl 10 Mg Tablet 10 Mg PO HS Buspirone HCl 10 Mg Tablet 10 Mg PO TID Namenda Xr (Memantine HCl) 28 Mg Cap.spr.24 28 Mg PO DAILY Amlodipine Besylate 5 Mg Tablet 5 Mg PO DAILY Metoprolol Succinate 50 Mg Tab.er.24h 50 Mg PO DAILY Hydrochlorothiazide 25 Mg Tablet 25 Mg PO DAILY Methotrexate (Methotrexate Sodium) 2.5 Mg Tablet 15 Mg PO TH TAKES 6 (2.5 MG) TABLETS Alendronate Sodium 70 Mg Tablet 70 Mg PO TH Instructions to patient/family Please see electronic discharge instructions given to patient. Clinical Quality Measures DVT/VTE Risk/Contraindication: Risk Factor Score Per Nursin RFS Level Per Nursing on Admit: 4+=Very High Copy Copies To 1: LLOYD MATHIS MD Problem Qualifiers (1) Urinary tract infection: Urinary tract infection type: acute cystitis Hematuria presence: without hematuria Qualified Codes: N30.00 - Acute cystitis without hematuria (2) Rheumatoid arthritis: Rheumatoid arthritis location: unspecified site Rheumatoid factor presence: unspecified presence Qualified Codes: M06.9 - Rheumatoid arthritis, unspecified TAZ BOYD MD Dec 20, 2017 1:43 pm
== END 2017-12-20 10:53 ==
LOC: EDUNIT# 13:17 → ER 13:18 → 4TH 17:20 → UNDOADMOB 17:20 → 4TH 18:15 → UNDODISOB 12-20 14:05
PROVIDERS: ADMIT Family Medicine; ATTEND Family Medicine
DX: N39.0 Urinary tract infection, site not specified (principal); I10 Essential (primary) hypertension; F03.90 Unspecified dementia, unspecified severity, without behavioral disturbance, psychotic disturbance, mood disturbance, and anxiety; R41.0 Disorientation, unspecified; K59.09 Other constipation; M06.9 Rheumatoid arthritis, unspecified; M81.0 Age-related osteoporosis without current pathological fracture; F32.9 Major depressive disorder, single episode, unspecified; Z87.891 Personal history of nicotine dependence
CPT/HCPCS: 36415; 51701; 71045; 80048; 80053; 81000; 83605; 85025; 87040; 87088; 87804; 96360

== ENCOUNTER 2018-08-26 10:03 | Emergency (ER) | payer MEDICARE, MEDICAID ==
[~2018-08-26] VITALS: Ht 162.6 cm; Wt 72.3 kg
[~2018-08-26 10:03] MED LIST changes: +ACET-168 PO; +ALBU2.5V4 NEB; -AMLO5TAB2 PO; +AMLO5TAB7 PO; +BACI1TAB3 PO; +CALC-654 PO; +CEFD300C3 PO; -CEFT1VIA58 IM; +CFTR1V IM; +CHOL10007 PO; -CITA20TA7 PO; +CITA20TA9 PO; +DOCU100C37 PO; +DORZ10DR22 OU; -DORZ10DR24 OU; +DORZ10DR8 OU; +ENAL10TA75 PO; +FLUC100T6 PO; +FLUT1DIS26 IH; +GUAI5SYR PO; +LORA0.5T PO; +LORA10TA7 PO; +MENT4OIN TP; -METH2.5T PO; +MULT1TAB69 PO
--- OUTSIDE RECORDS SUMMARY | 2018-08-26 10:09 | XMS REPORT | Continuity of Care Document ---
Author Author [facility] Organization [facility] Address Unknown Phone Unavailable Allergies Active Description Code Type Severity Reaction Onset Reported/Identified Relationship to Patient Clinical Status Yes meperidine [id number] Drug Allergy Mild N/A 01/27/2010 Medications There [...] 04/20/2015 SHANICE RODRIGUEZ MD Ot 440.23 ATHEROSCL CHENEGA ARTER EXTREMITIES W ULC 04/20/2015 SHANICE RODRIGUEZ MD Ot 707.15 ULCER OF OTHER PART OF FOOT 04/20/2015 SHANIEC RODRIGUEZ MD Ot 735.4 OTHER HAMMER TOE [...] Ot J44.9 CHRONIC OBSTRUCTIVE PULMONARY DISEASE, U 12/18/2017 LLOYD MATHIS MD Ot V76.12 OTH SCREEN MAMMO-MALIGN NEOPLASM OF NAYELY 12/18/2017 LLOYD MATHIS MD Ot 331.9 CEREB DEGENERATION NOS 12/18/2017 LLOYD MATHIS MD Ot V15.88 HISTORY OF FALL 12/18/2017 Ot 443.9 PERIPH VASCULAR DIS NOS 12/18/2017 Ot 707.15 ULCER OF OTHER PART OF FOOT 12/18/2017 LLOYD MATHIS MD Ot J44.9 CHRONIC OBSTRUCTIVE PULMONARY DISEASE, U 12/18/2017 LLOYD MATHIS MD Ot V76.12 OTH SCREEN MAMMO-MALIGN NEOPLASM OF NAYELY 12/18/2017 LLOYD MATHIS MD Ot 331.9 CEREB DEGENERATION NOS 12/18/2017 DEL MEYERS LLOYD Patten Ot V15.88 HISTORY OF FALL 12/18/2017 Ot 443.9 PERIPH VASCULAR DIS NOS 12/18/2017 Ot 707.15 ULCER OF OTHER PART OF FOOT 12/18/2017 DEL MEYERS, LLOYD Patten Ot J44.9 CHRONIC OBSTRUCTIVE PULMONARY DISEASE, U 12/20/2017 TAZ BOYD MD Ot F03.90 UNSPECIFIED DEMENTIA WITHOUT BEHAVIORAL 12/20/2017 TAZ BOYD MD Ot F32.9 MAJOR DEPRESSIVE DISORDER, SINGLE EPISOD 12/20/2017 TAZ BOYD MD Ot I10 ESSENTIAL (PRIMARY) HYPERTENSION 12/20/2017 TAZ BOYD MD Ot K59.09 OTHER CONSTIPATION 12/20/2017 TAZ BOYD MD Ot M06.9 RHEUMATOID ARTHRITIS, UNSPECIFIED 12/20/2017 TAZ BOYD MD Ot 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 12/20/2017 TAZ BOYD MD Ot N39.0 URINARY TRACT INFECTION, SITE NOT SPECIF 12/20/2017 TAZ BOYD MD Ot R41.0 DISORIENTATION, UNSPECIFIED 12/20/2017 TAZ BOYD MD Ot Z87.891 PERSONAL HISTORY OF NICOTINE DEPENDENCE 12/20/2017 TAZ BOYD MD Ot F03.90 UNSPECIFIED DEMENTIA WITHOUT BEHAVIORAL 12/20/2017 TAZ BOYD MD Ot F32.9 MAJOR DEPRESSIVE DISORDER, SINGLE EPISOD 12/20/2017 TAZ BOYD MD Ot I10 ESSENTIAL (PRIMARY) HYPERTENSION 12/20/2017 TAZ BOYD MD Ot K59.09 OTHER CONSTIPATION 12/20/2017 TAZ BOYD MD Ot M06.9 RHEUMATOID ARTHRITIS, UNSPECIFIED 12/20/2017 TAZ BOYD MD Ot 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 12/20/2017 TAZ BOYD MD Ot N39.0 URINARY TRACT INFECTION, SITE NOT SPECIF 12/20/2017 TAZ BOYD MD Ot R41.0 DISORIENTATION, UNSPECIFIED 12/20/2017 TAZ BOYD MD Ot Z87.891 PERSONAL HISTORY OF NICOTINE DEPENDENCE Procedures Code Description Performed By Performed On 86.04 OTHER SKIN SUBQ I D 03/10/2015 V2204 Lens sphcy bifocal 4.00d/ 2.1 02/19/2018 V2744 Tint photochromatic lens/es 02/19/2018 V2782 Lens, 1.54-1.65 p/1.60- 1.79g 02/19/2018 Results Test Result Range Complete blood count [...] plasma albumin measurement (mass/volume) 3.2 g/dL 3.2-4.5 Bacterial blood culture - 12/18/17 13:25 QUANTITY OF GROWTH . [facility] Bacterial blood culture SEE COMMEN [facility] Complete urinalysis with reflex to culture - 12/18/17 13:35 Urine color determination YELLOW NR Urine clarity determination CLOUDY [facility] Urine pH measurement by test strip 6 [...] urinalysis with reflex to culture YES NRG Bacterial urine culture - 12/18/17 13:35 Bacterial urine culture [id number] NRG COLONY COUNT 10,000/ML - 100,000/ML NRG Influenza virus A and B antigen detection - 12/18/17 13:41 FLU RESULT NEGATIVE FOR INFLUENZA A AND B ANTIGENS BY IA NRG Bacterial blood culture - 12/18/17 14:05 Bacterial blood culture NG NRG Complete blood count (CBC) with automated white blood cell (WBC) differential - 12/19/17 05:00 Blood leukocytes automated count (number/volume) 8.9 10*3/uL 4.3-11.0 Blood erythrocytes automated count (number/volume) 3.70 10*6/uL 4.35-5.85 Venous blood hemoglobin measurement (mass/volume) 11.6 g/dL 11.5-16.0 Blood hematocrit (volume fraction) 36 % 35-52 Automated erythrocyte mean corpuscular volume 98 [foz_us] 80-99 Automated erythrocyte mean corpuscular hemoglobin (mass per erythrocyte) 31 pg 25-34 Automated erythrocyte mean corpuscular hemoglobin concentration measurement ( mass/volume) 32 g/dL 32-36 Automated erythrocyte distribution width ratio 16.5 % 10.0-14.5 Automated blood platelet count (count/volume) 213 10*3/uL 130-400 Automated blood platelet mean volume measurement 9.4 [foz_us] 7.4-10.4 Automated blood neutrophils/100 leukocytes 78 % 42-75 Automated blood lymphocytes/100 leukocytes 14 % 12-44 Blood monocytes/100 leukocytes 7 % 0-12 Automated blood eosinophils/100 leukocytes 1 % 0-10 Automated blood basophils/100 leukocytes 0 % 0-10 Blood neutrophils automated count (number/volume) 6.9 10*3 1.8-7.8 Blood lymphocytes automated count (number/volume) 1.2 10*3 1.0-4.0 Blood monocytes automated count (number/volume) 0.7 10*3 0.0-1.0 Automated eosinophil count 0.1 10*3/uL 0.0-0.3 Automated blood basophil count (count/volume) 0.0 10*3/uL 0.0-0.1 Whole blood basic metabolic panel - 12/19/17 05:00 Serum or plasma sodium measurement (moles/volume) 138 mmol/L 135-145 Serum or plasma potassium measurement (moles/volume) 4.5 mmol/L 3.6-5.0 Serum or plasma chloride measurement (moles/volume) 105 mmol/L 98-107 Carbon dioxide 23 mmol/L 21-32 Serum or plasma anion gap determination (moles/volume) 10 mmol/L 5-14 Serum or plasma urea nitrogen measurement (mass/volume) 28 mg/dL 7-18 Serum or plasma creatinine measurement (mass/volume) 0.79 mg/dL 0.60-1.30 Serum or plasma urea nitrogen/creatinine mass ratio 35 NRG Serum or plasma creatinine measurement with calculation of estimated glomerular filtration rate > NRG Serum or plasma glucose measurement (mass/volume) 102 mg/dL 70-105 Serum or plasma calcium measurement (mass/volume) 9.6 mg/dL 8.5-10.1 Encounters ACCT No. Visit Date/Time Discharge Status Pt. Type Provider Facility Loc./Unit Complaint [id number] 12/18/2017 17:20:00 12/20/2017 14:05:00 DIS Inpatient DEB MEYERS, TAZ [place] [facility] 4TH UTI,DELERIUM HYPOACTIVE [id number] 08/13/2016 09:51:00 08/13/2016 23:59:59 CLS Outpatient LLOYD MATHIS MD [facility] RT COPD [id number] 02/22/2016 14:19:00 02/22/2016 17:45:00 DIS Emergency ERIN ARIAS MD [facility] ER LOW O2 [id number] 11/11/2015 13:47:00 11/12/2015 13:00:00 DIS Inpatient LLOYD MATHIS MD [facility] 4TH UTI;FEVER [id number] 04/03/2015 13:05:00 04/20/2015 14:00:00 DIS Outpatient SHANICE RODRIGUEZ MD [facility] WOUNDCARE [id number] 03/06/2015 12:43:00 03/12/2015 15:10:00 DIS Inpatient LLOYD MATHIS MD [facility] SURGICAL SEPSIS UTI [id number] 10/20/2013 14:54:00 10/20/2013 23:59:59 CLS Outpatient LLOYD MATHIS MD [facility] RAD FALLS [id number] 07/25/2013 08:30:00 07/25/2013 23:59:59 CLS Outpatient LLOYD MATHIS MD [facility] RAD SCREENING [id number] 02/13/2015 11:55:00 Document Registration [id number] 01/20/2012 14:22:00 Document Registration [id number] 07/07/2011 10:53:00 Document Registration [id number] 02/19/2018 00:00:00 Document Registration
[2018-08-26] MEDS: morphine INJ 10 MG/ML 1ML (SYR OR VIAL) IVP ONE (10:34)
--- NOTE | 2018-08-26 11:25 | Diagnostic Imaging Report ---
PATIENT HISTORY: Right shoulder pain, fall. TECHNIQUE: Three views of the right shoulder. COMPARISON: Chest x-ray from 12/18/2017. 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 There is chronic rotator cuff injury with loss of the acromiohumeral space and remodeling of the acromion undersurface. In addition, there appears to be linear lucency and cortical disruption along the lateral aspect of the humeral head in the region of the greater tuberosity, concerning for acute fracture. IMPRESSION: Findings concerning for acute nondisplaced fracture in the right humeral head, superimposed on extensive destruction of the right glenohumeral joint. Dictated by: Dictated on workstation # [id number]
--- NOTE | 2018-08-26 11:28 | Diagnostic Imaging Report ---
PATIENT HISTORY: Fall, right shoulder pain. TECHNIQUE: Two views of the right humerus. COMPARISON: None. FINDINGS: There is severe destruction of the right glenohumeral joint as described on the concurrent shoulder radiograph. There appears to be a mildly displaced fracture of the right humeral head and neck, with disruption of the cortex and small ossific fragments present. There is calcific tendinitis at the origin of the common flexor and extensor tendons of the distal humerus. IMPRESSION: Mildly displaced, mildly comminuted fracture of the right humeral head and neck, superimposed on severe chronic destruction of the right glenohumeral joint. Dictated by: Dictated on workstation # [id number]
--- NOTE | 2018-08-26 11:30 | Diagnostic Imaging Report ---
PATIENT HISTORY: Pain in the right shoulder, fall. TECHNIQUE: Single frontal view of the chest. COMPARISON: 12/18/2017. FINDINGS: There is moderate cardiomegaly with central vascular congestion. No new consolidation is seen. There is no significant pleural effusion or pneumothorax. There is aortic atherosclerosis. Degenerative changes are seen throughout the spine. There is marked destruction of the right glenohumeral joint and suspected right humerus fracture. There is severe osteoarthritis in the left glenohumeral joint. There is diffuse osteopenia. No acute displaced rib fractures are seen. IMPRESSION: 1. Moderate cardiomegaly with mildly increased central vascular congestion. 2. Chronic destruction of the right glenohumeral joint with suspected acute fracture of the humerus. Dictated by: Dictated on workstation # [id number]
--- NOTE | 2018-08-26 11:50 | Diagnostic Imaging Report ---
INDICATION: Fall with right forearm injury. FINDINGS: There is no definite fracture involving the radius. There does appear to be overriding of distal ulna which may be due to fracture of indeterminate age. Advanced degenerative findings are also present in the wrist. IMPRESSION: Possible impacted fracture involving the distal ulna with advanced degenerative findings of the wrist. This could be further assessed with dedicated views of the wrist for further characterization. No other acute right forearm abnormality is identified. Dictated by: Dictated on workstation # [id number]
[2018-08-26] MEDS ORDERED: HYDR-3812 PO (13:00)
[2018-08-26] MEDS ORDERED: DOCU-143 PO (13:00)
--- NOTE | 2018-08-26 13:01 | ED Fall/Injury ---
General Chief Complaint: Trauma-Non Activation Stated Complaint: FALL Nursing Triage Note: PT TO [facility] BY [facility] WITH CC OF A FALL THIS A.M. CC OF RT SHOULDER/ARM PAIN. PT WAS FOUND ON THE FLOOR AT ABOUT 0900 AT THE [facility], UNWITNESSED FALL. DENIES HEAD OR NECK PAIN. Source: patient, [facility] records Exam Limitations: no limitations History of Present Illness Date Seen by Provider: Aug 26, 2018 Time Seen by Provider: 10:10 Initial Comments This 88-year-old woman presents to the emergency room from the [facility] via EMS after falling and injuring her right shoulder. The exact mechanism of the fall is unknown. Patient has pain in the shoulder but denies any other injury. Pain radiates down into her elbow and forearm. She denies striking her head or having any neck pain. She arrives in an adopted sling applied by EMS. EMS reported feeling crepitus in the shoulder. Allergies and Home Medications Allergies Coded Allergies: meperidine (Unverified Allergy, Mild, 01/27/10) Home Medications Acetaminophen 500 Mg Tablet, 500 MG PO 0800,1400,1999, (Reported) Albuterol Sulfate 2.5 Mg/3 Ml Vial.neb, 2.5 MG NEB Q2H PRN for SHORTNESS OF BREATH, (Reported) Alendronate Sodium 70 Mg Tablet, 70 MG PO Th, (Reported) Amlodipine Besylate 5 Mg Tablet, 5 MG PO DAILY, (Reported) Bacillus Coagulans 1 Each Tab.chew, 1 EACH PO AC Prescribed by: TAZ BOYD on 12/20/17 1052 Buspirone HCl 10 Mg Tablet, 10 MG PO TID, (Reported) Calcium Carbonate/Vitamin D3 1 Each Tablet, 1 TAB PO DAILY, (Reported) Cefdinir 300 Mg Capsule, 300 MG PO BID Prescribed by: TAZ BOYD on 12/20/17 1052 Cholecalciferol (Vitamin D3) 1,000 Unit Capsule, 1,000 UNIT PO DAILY, (Reported) Docusate Sodium 100 Mg Capsule, 100 MG PO BID, (Reported) Docusate Sodium 100 Mg Capsule, 100 MG PO DAILY Prescribed by: ERIN NGUYEN on 08/26/18 1300 Donepezil HCl 10 Mg Tablet, 10 MG PO HS, (Reported) Dorzolamide HCl/Timolol Maleat 10 Ml Drops, 1 DROP OU BID, (Reported) Enalapril Maleate 10 Mg Tablet, 10 MG PO BID, (Reported) Fluticasone/Salmeterol 1 Each Blst.w.dev, 1 PUFF IH BID, (Reported) Folic Acid 1 Mg Tablet, 1 MG PO DAILY, (Reported) Guaifenesin 600 Mg Tab.er.12h, 600 MG PO TID, (Reported) Guaifenesin/Dextromethorphan 5 Ml Syrup, 10 ML PO Q4H PRN for COUGH, (Reported) Hydrochlorothiazide 25 Mg Tablet, 25 MG PO DAILY, (Reported) Hydrocodone/Acetaminophen 1 Each Tablet, 1-2 EACH PO Q6H PRN for PAIN-MODERATE Use while on hydrocodone. Hold if loose stools. Prescribed by: ERIN NGUYEN on 08/26/18 1300 Latanoprost 2.5 Ml Drops, 1 DROP OU HS, (Reported) Loratadine 10 Mg Tablet, 10 MG PO DAILY PRN for ALLERGIES, (Reported) Lorazepam 0.5 Mg Tablet, 0.5 MG PO Q8H PRN for ANXIETY, (Reported) Memantine HCl 28 Mg Cap.spr.24, 28 MG PO DAILY, (Reported) Menthol/Camphor 4 Gm Oint...g., TP BID, (Reported) APPLY AND MASSAGE INTO RT SHOULDER Methotrexate Tablet 2.5 Mg Tablet, 15 MG PO Th, (Reported) TAKES 6 (2.5 MG) TABLETS Metoprolol Succinate 50 Mg Tab.er.24h, 50 MG PO DAILY, (Reported) Multivitamin 1 Each Tablet, 1 TAB PO DAILY, (Reported) Polymyxin B Sulf/Trimethoprim 10 Ml Drops, 10 ML OP Q6H Prescribed by: TAZ BOYD on 12/20/17 1104 Solifenacin Succinate 5 Mg Tablet, 5 MG PO DAILY, (Reported) Tramadol HCl 50 Mg Tablet, 25-50 MG PO Q8H PRN for PAIN-MODERATE, (Reported) Tramadol HCl 50 Mg Tablet, 50 MG PO 1100,1700, (Reported) Patient Home Medication List Home Medication List Reviewed: Yes Review of Systems Review of Systems Constitutional: no symptoms reported Eyes: No Symptoms Reported Ears, Nose, Mouth, Throat: no symptoms reported Respiratory: no symptoms reported Cardiovascular: no symptoms reported Gastrointestinal: no symptoms reported Genitourinary: no symptoms reported Musculoskeletal: see HPI Skin: no symptoms reported Psychiatric/Neurological: No Symptoms Reported Past Loxqztp-Npvipt-Nhepag Hx Patient Social History Alcohol Use: Denies Use Recreational Drug Use: No Smoking Status: Former Smoker Type Used: Cigarettes Former Smoker, Quit: Nov 30, 2001 Recent Foreign Travel: No Contact w/Someone Who Travel: No Recent Infectious Disease Expo: No Recent Hopitalizations: No Immunizations Up To Date Tetanus Booster (TDap): Unknown Date of Pneumonia Vaccine: Jul 31, 2008 Date of Influenza Vaccine: Sep 19, 2017 Seasonal Allergies Seasonal Allergies: No Past Medical History Surgeries: Yes (HEMORROID SURGERY, AND BILAT ARTHROSCOPIC KNEE) Eye Surgery Respiratory: Yes (nocturnal hypoxia requiring supplemental oxygen) Cardiac: Yes Hypertension, Valvular Heart Disease Neurological: Yes (ALZHEIMERS) Dementia Reproductive Disorders: No Female Reproductive Disorders: Denies Bladder Infection, UTI-Chronic Gastrointestinal: Yes Chronic Constipation Musculoskeletal: Yes (polyarthritis) Osteoporosis, Arthritis, Rheumatoid Arthritis Endocrine: No HEENT: Yes Macular Degeneration, Glaucoma Loss of Vision: Denies Hearing Impairment: Denies Cancer: No Psychosocial: Yes Depression Integumentary: No Blood Disorders: No Family Medical History Patient reports no known family medical history. No Pertinent Family Hx Physical Exam Vital Signs Vital Signs - First Documented 08/26/18 10:05 Temp 97.0 Pulse 62 Resp 22 B/P (MAP) 174/110 (131) Pulse Ox 97 O2 Delivery Room Air Capillary Refill : Less Than 3 Seconds Height, Weight, BMI Height: 5'4.00" Weight: 159lbs. 5.0oz. 72.735076yc; 27.4 BMI Method:Estimated General Appearance: WD/WN, mild distress HEENT: PERRL/EOMI, normal ENT inspection Neck: non-tender, full range of motion, supple, normal inspection Cardiovascular: regular rate, rhythm, no edema, no murmur Respiratory: lungs clear, normal breath sounds, no respiratory distress Gastrointestinal: normal bowel sounds, non tender, soft Back: normal inspection Extremities: no pedal edema, other (Right shoulder is tender to palpation. She has mild tenderness scattered throughout the rest of the extremity as well. No gross deformity noted.) Neurologic/Psychiatric: manager diversity II-XII nml as tested, no motor/sensory deficits, alert, normal mood/affect, oriented x 3 (To baseline with dementia) Skin: normal color, warm/dry [place] Coma Score Best Eye Response: (4) Open Spontaneously Best Verbal Response: (5) Oriented Best Motor Response: (6) Obeys Commands [place] Total: 15 Progress/Results/Core Measures Results/Orders My Orders Orders - ERIN ARIAS MD Morphine Injection (Morphine Injection (08/26/18 10:30) Chest 1 View, Ap/Pa Only (08/26/18 10:26) Shoulder, Right, 3 Views (08/26/18 10:26) Forearm, Right, 2 Views (08/26/18 10:26) Humerus, Right, 2 Views (08/26/18 10:26) Hydrocodone/Apap 5/325 Tablet (Lortab 5 (08/26/18 13:00) Medications Given in ED Vital Signs/I&O 08/26/18 08/26/18 10:05 13:20 Temp 97.0 Pulse 62 62 Resp 22 16 B/P (MAP) 174/110 (131) 161/75 Pulse Ox 97 97 O2 Delivery Room Air Room Air Blood Pressure Mean: 131 Progress Progress Note : Progress Note Morphine injection was given for pain. X-rays of the right shoulder and surrounding structures were obtained. Humerus fracture was identified and patient was placed in a proper sling. She was given hydrocodone for additional pain management prior to dismissal. Dr. Joyce reviewed images and agrees with management with follow-up in the clinic. There was questionable fracture at the wrist but on reexamination patient had no tenderness in this area. The suspected fracture was felt to be old. Diagnostic Imaging Diagonstic Imaging: Xray Plain Films/CT/US/NM/MRI: other (R shoulder) Comments Right shoulder x-ray reviewed by me and report reviewed. See report below: NAME: JOAQUIM [facility] REC#: [id number] PT STATUS: DEP ER : 1930 PHYSICIAN: ERIN ARIAS MD ADMIT DATE: 08/26/18/ER Signed Date of Exam: 08/26/18 SHOULDER, RIGHT, 3 VIEWS PATIENT HISTORY: Right shoulder pain, fall. TECHNIQUE: Three views of the right shoulder. COMPARISON: Chest x-ray from 12/18/2017. 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 There is chronic rotator cuff injury with loss of the acromiohumeral space and remodeling of the acromion undersurface. In addition, there appears to be linear lucency and cortical disruption along the lateral aspect of the humeral head in the region of the greater tuberosity, concerning for acute fracture. IMPRESSION: Findings concerning for acute nondisplaced fracture in the right humeral head, superimposed on extensive destruction of the right glenohumeral joint. Dictated by: Dictated on workstation # [id number] Dict: 08/26/18 1118 Trans: 08/26/181719 Interpreted by: JAMIL CABRALES MD Electronically signed by: JAMIL CABRALES MD 08/26/181719 Diagonstic Imaging: Xray Plain Films/CT/US/NM/MRI: other (Right humerus) Comments Right humerus x-ray reviewed by me and report reviewed. She reported below: NAME: JOAQUIM [facility] REC#: [id number] PT STATUS: DEP ER : 1930 PHYSICIAN: ERIN ARIAS MD ADMIT DATE: 08/26/18/ER Signed Date of Exam: 08/26/18 HUMERUS, RIGHT, 2 VIEWS PATIENT HISTORY: Fall, right shoulder pain. TECHNIQUE: Two views of the right humerus. COMPARISON: None. FINDINGS: There is severe destruction of the right glenohumeral joint as described on the concurrent shoulder radiograph. There appears to be a mildly displaced fracture of the right humeral head and neck, with disruption of the cortex and small ossific fragments present. There is calcific tendinitis at the origin of the common flexor and extensor tendons of the distal humerus. IMPRESSION: Mildly displaced, mildly comminuted fracture of the right humeral head and neck, superimposed on severe chronic destruction of the right glenohumeral joint. Dictated by: Dictated on workstation # [id number] Dict: 08/26/18 1122 Trans: 08/26/181719 Interpreted by: JAMIL CABRALES MD Electronically signed by: JAMIL CABRALES MD 08/26/18 1720 Diagonstic Imaging: Xray Plain Films/CT/US/NM/MRI: forearm Comments Right forearm x-ray reviewed by me and report reviewed. See report below: NAME: JOAQUIM [facility]OWER [facility] REC#: [id number] PT STATUS: [facility] ER : 1930 PHYSICIAN: ERIN ARIAS MD ADMIT DATE: 08/26/18/ER Signed Date of Exam: 08/26/18 FOREARM, RIGHT, 2 VIEWS INDICATION: Fall with right forearm injury. FINDINGS: There is no definite fracture involving the radius. There does appear to be overriding of distal ulna which may be due to fracture of indeterminate age. Advanced degenerative findings are also present in the wrist. IMPRESSION: Possible impacted fracture involving the distal ulna with advanced degenerative findings of the wrist. This could be further assessed with dedicated views of the wrist for further characterization. No other acute right forearm abnormality is identified. Dictated by: Dictated on workstation # [id number] Dict: 08/26/18 1115 Trans: 08/26/18 1430 Interpreted by: FELIPA BANKS MD Electronically signed by: FELIPA BANKS MD 08/26/18 1430 Diagonstic Imaging: Xray Plain Films/CT/US/NM/MRI: chest Comments Chest x-ray reviewed by me and report reviewed. See report below: NAME: JOAQUIM [facility] REC#: [id number] PT STATUS: [facility] ER : 1930 PHYSICIAN: ERIN ARIAS MD ADMIT DATE: 08/26/18/ER Signed Date of Exam: 08/26/18 CHEST 1 VIEW, AP/PA ONLY PATIENT HISTORY: Pain in the right shoulder, fall. TECHNIQUE: Single frontal view of the chest. COMPARISON: 12/18/2017. FINDINGS: There is moderate cardiomegaly with central vascular congestion. No new consolidation is seen. There is no significant pleural effusion or pneumothorax. There is aortic atherosclerosis. Degenerative changes are seen throughout the spine. There is marked destruction of the right glenohumeral joint and suspected right humerus fracture. There is severe osteoarthritis in the left glenohumeral joint. There is diffuse osteopenia. No acute displaced rib fractures are seen. IMPRESSION: 1. Moderate cardiomegaly with mildly increased central vascular congestion. 2. Chronic destruction of the right glenohumeral joint with suspected acute fracture of the humerus. Dictated by: Dictated on workstation # [id number] Dict: 08/26/18 1125 Trans: 08/26/181718 Interpreted by: JAMIL CABRALES MD Electronically signed by: JAMIL CABRALES MD 08/26/181718 Departure Impression Primary Impression: Fracture, humerus closed Qualified Codes: S42.291A - Other displaced fracture of upper end of right humerus, initial encounter for closed fracture Additional Impression: Fall on same level Qualified Codes: W18.30XA - Fall on same level, unspecified, initial encounter Disposition: 01 HOME, SELF-CARE Condition: Improved Departure-Patient Inst. Decision time for Depature: 12:45 Referrals: CALIN JOYCE JOHN D MD (PCP/Family) Primary Care Physician Patient Instructions: Shoulder Fracture Add. Discharge Instructions: Keep your shoulder in a sling as much as possible. You may ice in 20 minute intervals to help with pain and swelling. Use hydrocodone as prescribed for pain. I advised using some Colace stool softener while on hydrocodone to prevent constipation. Follow-up with Dr. Joyce next week. Return to care if you have worsening symptoms or other concerns. All discharge instructions reviewed with patient and/or family. Voiced understanding. Scripts Docusate Sodium (Colace) 100 Mg Capsule 100 MG PO DAILY, #30 CAP Prov: ERIN ARIAS MD 08/26/18 Hydrocodone/Acetaminophen (Hydrocodone-Acetamin 5-325 mg) 1 Each Tablet 1-2 EACH PO Q6H PRN for PAIN-MODERATE, #30 TAB Use while on hydrocodone. Hold if loose stools. Prov: ERIN ARIAS MD 08/26/18 Copy Copies To 1: CALIN JOYCE DO Copies To 2: LLOYD MATHIS MD, JOSHUA T MD Aug 26, 2018 13:00
[2018-08-26 13:20] VITALS: BP 161/75
[2018-08-26] MEDS: HYDROcodone/APAP 5 MG/325 MG (LORTAB) TAB PO ONE (13:20)
== END 2018-08-26 13:30 | disposition home or self-care (01) ==
LOC: EDUNIT# 10:03 → ER 10:04
DX: S42.291A Other displaced fracture of upper end of right humerus, initial encounter for closed fracture (principal); I10 Essential (primary) hypertension; G30.9 Alzheimer's disease, unspecified; F03.90 Unspecified dementia, unspecified severity, without behavioral disturbance, psychotic disturbance, mood disturbance, and anxiety; M81.0 Age-related osteoporosis without current pathological fracture; F32.9 Major depressive disorder, single episode, unspecified; Z87.440 Personal history of urinary (tract) infections; Z87.448 Personal history of other diseases of urinary system; Z88.8 Allergy status to other drugs, medicaments and biological substances; Z79.51 Long term (current) use of inhaled steroids; Z87.891 Personal history of nicotine dependence; W19.XXXA Unspecified fall, initial encounter
CPT/HCPCS: 71045; 73030; 73060; 73090

== ENCOUNTER 2019-01-08 20:14 | Emergency (ER) | payer MEDICARE, MEDICAID ==
[~2019-01-08] VITALS: Ht 162.6 cm; Wt 72.3 kg
[~2019-01-08 20:14] MED LIST changes: +ALEN70TA5 PO; -AMLO5TAB7 PO; +AMLO5TAB9 PO; +DOCU-143 PO; +HYDR-3812 PO
--- NOTE | 2019-01-08 21:28 | Diagnostic Imaging Report ---
PROCEDURE: CT head and CT cervical spine without contrast. TECHNIQUE: Multiple contiguous axial images were obtained through the brain and cervical spine without the use of intravenous contrast. Sagittal and coronal reformations through the cervical spine were then performed. DATE: January 08, 2019. COMPARISON: CT head, October 20, 2013. INDICATION: 88-year-old female, fall. Head and neck pain. FINDINGS: There is proportional prominence of the ventricles and CSF spaces compatible with moderate cerebral volume loss. There are areas of low attenuation in the periventricular and subcortical white matter which are nonspecific but most likely relate to changes of chronic small vessel ischemic disease. There is no mass effect or midline shift. There is no acute intracranial hemorrhage. There is no abnormal extra-axial fluid collection. The visualized portions of the paranasal sinuses, mastoid air cells and middle ears are well aerated. There is no identified facet joint subluxation or dislocation. There are multilevel mild to moderate facet degenerative changes of the cervical spine. There is prominent chondrocalcinosis adjacent to the C1-C2 articulation as well as additionally present. There are multilevel severe disc degenerative changes of the cervical spine with multilevel posterior disc osteophyte complexes. There does appear to be at least moderate spinal stenosis at C3-C4 as well as at least moderate spinal stenosis at C4-C5 and C5-C6. The CT is limited for assessment of disc pathology as well as additional non-bony causes of foraminal and spinal stenosis. There is no identified acute fracture of the cervical spine. The visualized portions of the lung apices are grossly clear. There is a peripherally calcified right-sided thyroid nodule which measures 11 mm in size. There are carotid vascular calcifications noted. IMPRESSION: 1. No identified acute intracranial abnormality. 2. Moderate cerebral volume loss and changes of chronic small vessel ischemic disease. 3. No identified acute posttraumatic abnormality of the cervical spine. 4. Multilevel advanced disc and facet degenerative changes of the cervical spine with at least moderate spinal stenosis and possibly severe spinal stenosis at C3-C4, C4-C5 and C5-C6. Dictated by: Dictated on workstation # [id number]
--- NOTE | 2019-01-08 21:30 | Diagnostic Imaging Report ---
EXAMINATION: Chest radiograph, portable AP view. DATE: January 08, 2019. INDICATION: 88-year-old female, fall. Chest pain. COMPARISON: August 26, 2018. FINDINGS: There is a chronic appearing deformity of the right proximal humerus which appears similar to comparison exam. There is also a chronic appearing deformity of the right glenoid. There are end-stage left glenohumeral arthritic changes. Stable overall appearance of the cardiomediastinal silhouette. There is no identified pneumothorax. There is no large pleural effusion. There is no identified interval focal airspace consolidation. There are degenerative changes of the spine. IMPRESSION: 1. No identified interval acute cardiopulmonary abnormality. 2. Chronic appearing deformities associated with the right glenohumeral joint and end-stage left glenohumeral arthritis. Inflammatory and crystalline arthropathies are included in the differential diagnosis. Dictated by: Dictated on workstation # [id number]
--- NOTE | 2019-01-08 21:31 | Diagnostic Imaging Report ---
EXAMINATION: Pelvis, single view. Right hip, 2 additional views. COMPARISON: None. HISTORY: 88-year-old female, fall. Pelvic and right hip pain. FINDINGS: The left hip is not obviously dislocated. The pubic symphysis and sacroiliac joints are normally aligned. Bowel gas overlying the sacrum limits its evaluation. There are advanced degenerative changes of the visualized lumbar spine. There are atherosclerotic calcifications. Bones do appear somewhat demineralized. There is no identified acute fracture. There is mild/moderate joint space loss of both hips. There is chondrocalcinosis. IMPRESSION: 1. The bones appear somewhat demineralized without radiographically apparent fracture at the level of the pelvis or right hip. 2. Advanced degenerative changes of the lower lumbar spine. Dictated by: Dictated on workstation # [id number]
--- NOTE | 2019-01-08 21:35 | Diagnostic Imaging Report ---
EXAMINATION: Right shoulder radiographs, 3 views. COMPARISON: August 26, 2018. HISTORY: 88-year-old female, fall. Right shoulder pain. FINDINGS: There is a chronic appearing deformity of the right proximal humerus and glenoid which is unchanged since comparison exam. This likely relates to an end-stage arthritic process. The humeral head is not dislocated relative to the glenoid. There is abnormal alignment of the proximal humeral diaphysis relative to the humeral head on the scapular Y-view although this alignment is similar to comparison exam. There is no definite acute fracture. The acromioclavicular joint is normally aligned. There are right acromioclavicular degenerative changes. IMPRESSION: 1. 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 Sequela of inflammatory and crystalline arthropathies are considered. 2. There is abnormal alignment of the proximal humeral diaphysis relative to the humeral head component of the humerus which appears similar to comparison exam and may relate to a prior fracture. 3. No clearly identified new fracture of the humerus. If there is high clinical concern, dedicated CT right shoulder without contrast is recommended for further assessment. Dictated by: Dictated on workstation # [id number]
--- NOTE | 2019-01-08 21:37 | Diagnostic Imaging Report ---
EXAMINATION: Lumbar spine radiographs, 3 views. COMPARISON: None. HISTORY: 88-year-old female, fall. Low back pain. FINDINGS: There is grade 1 anterolisthesis of L4 on L5. The lateral radiographs are limited relating to difficulties with exposure. There is multilevel severe disc height loss. There is approximately 20% height loss of the T12 vertebral body which is age-indeterminate without comparison imaging. There are atherosclerotic calcifications. There are advanced facet degenerative changes, bilaterally, at L4-L5 and L5-S1. IMPRESSION: 1. Mild height loss of the T12 vertebral body which is age-indeterminate without comparison imaging. 2. Multilevel advanced disc and facet degenerative changes of the lumbar spine. 3. Advanced facet degenerative changes are most notable at L4-L5 and L5-S1. Grade 1 anterolisthesis of L4 on L5. Dictated by: Dictated on workstation # [id number]
--- NOTE | 2019-01-08 21:56 | ED Fall/Injury ---
General Chief Complaint: Trauma-Non Activation Stated Complaint: FALL Nursing Triage Note: FALL FROM SITTING POSITION, RIGHT HIP/SHOULDER PAIN. NO LOC Source: patient, EMS Exam Limitations: no limitations History of Present Illness Date Seen by Provider: Jan 08, 2019 Time Seen by Provider: 20:26 Initial Comments Here with report of fall from a sitting position. Apparently she was transferring and lost balance and fell back on to her bottom and fell back and hit her head. Complains of some neck pain and right hip and low back pain. Also had some right shoulder pain. 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 No loss of consciousness and no breaks in skin. Location Injury Occurred: HOME Occurred: just prior to arrival (approximately 30 minutes ago) Severity: moderate Injuries/Pain Location: head, neck, back, pelvis Context: lost balance Loss of Consciousness: no loss of consciousness Modifying Factors: Worse With Movement; Improves With Rest Associated Symptoms (Fall): No Abdominal Pain, No Chest Pain; Headache; No Muscle Spasms, No Nausea/Vomiting; Neck Pain; No Shortness of Air Allergies and Home Medications Allergies Coded Allergies: meperidine (Unverified Allergy, Mild, 01/27/10) Home Medications Acetaminophen 500 Mg Tablet, 500 MG PO 0800,1400,2000, (Reported) Albuterol Sulfate 2.5 Mg/3 Ml Vial.neb, 2.5 MG NEB Q2H PRN for SHORTNESS OF BREATH, (Reported) Alendronate Sodium 70 Mg Tablet, 70 MG PO Th, (Reported) Amlodipine Besylate 5 Mg Tablet, 5 MG PO DAILY, (Reported) Bacillus Coagulans 1 Each Tab.chew, 1 EACH PO AC Prescribed by: TAZ BOYD on 12/20/17 1052 Buspirone HCl 10 Mg Tablet, 10 MG PO TID, (Reported) Calcium Carbonate/Vitamin D3 1 Each Tablet, 1 TAB PO DAILY, (Reported) Cefdinir 300 Mg Capsule, 300 MG PO BID Prescribed by: TAZ BOYD on 12/20/17 1052 Cholecalciferol (Vitamin D3) 1,000 Unit Capsule, 1,000 UNIT PO DAILY, (Reported) Docusate Sodium 100 Mg Capsule, 100 MG PO BID, (Reported) Docusate Sodium 100 Mg Capsule, 100 MG PO DAILY Prescribed by: ERIN NGUYEN on 08/26/18 1300 Donepezil HCl 10 Mg Tablet, 10 MG PO HS, (Reported) Dorzolamide HCl/Timolol Maleat 10 Ml Drops, 1 DROP OU BID, (Reported) Enalapril Maleate 10 Mg Tablet, 10 MG PO BID, (Reported) Fluticasone/Salmeterol 1 Each Blst.w.dev, 1 PUFF IH BID, (Reported) Folic Acid 1 Mg Tablet, 1 MG PO DAILY, (Reported) Guaifenesin 600 Mg Tab.er.12h, 600 MG PO TID, (Reported) Guaifenesin/Dextromethorphan 5 Ml Syrup, 10 ML PO Q4H PRN for COUGH, (Reported) Hydrochlorothiazide 25 Mg Tablet, 25 MG PO DAILY, (Reported) Hydrocodone/Acetaminophen 1 Each Tablet, 1-2 EACH PO Q6H PRN for PAIN-MODERATE Use while on hydrocodone. Hold if loose stools. Prescribed by: ERIN NGUYEN on 08/26/18 1300 Latanoprost 2.5 Ml Drops, 1 DROP OU HS, (Reported) Loratadine 10 Mg Tablet, 10 MG PO DAILY PRN for ALLERGIES, (Reported) Lorazepam 0.5 Mg Tablet, 0.5 MG PO Q8H PRN for ANXIETY, (Reported) Memantine HCl 28 Mg Cap.spr.24, 28 MG PO DAILY, (Reported) Menthol/Camphor 4 Gm Oint...g., TP BID, (Reported) APPLY AND MASSAGE INTO RT SHOULDER Methotrexate Tablet 2.5 Mg Tablet, 15 MG PO Th, (Reported) TAKES 6 (2.5 MG) TABLETS Metoprolol Succinate 50 Mg Tab.er.24h, 50 MG PO DAILY, (Reported) Multivitamin 1 Each Tablet, 1 TAB PO DAILY, (Reported) Polymyxin B Sulf/Trimethoprim 10 Ml Drops, 10 ML OP Q6H Prescribed by: TAZ BOYD on 12/20/17 1104 Solifenacin Succinate 5 Mg Tablet, 5 MG PO DAILY, (Reported) Tramadol HCl 50 Mg Tablet, 25-50 MG PO Q8H PRN for PAIN-MODERATE, (Reported) Tramadol HCl 50 Mg Tablet, 50 MG PO 1100,1700, (Reported) Patient Home Medication List Home Medication List Reviewed: Yes Review of Systems Review of Systems Constitutional: see HPI; No chills, No fever Eyes: No Symptoms Reported Ears, Nose, Mouth, Throat: no symptoms reported Respiratory: no symptoms reported Cardiovascular: no symptoms reported Gastrointestinal: No nausea, No vomiting Musculoskeletal: back pain, joint pain, muscle pain Skin: no symptoms reported Psychiatric/Neurological: Headache; Denies Weakness Past Iygcxby-Dwzlji-Yirxyt Hx Past Med/Social Hx: Reviewed Nursing Past Med/Soc Hx Patient Social History Alcohol Use: Denies Use Recreational Drug Use: No Smoking Status: Former Smoker Type Used: Cigarettes Former Smoker, Quit: Nov 30, 2001 Recent Foreign Travel: No Contact w/Someone Who Travel: No Recent Infectious Disease Expo: No Recent Hopitalizations: No Immunizations Up To Date Tetanus Booster (TDap): Unknown Date of Pneumonia Vaccine: Jul 31, 2008 Date of Influenza Vaccine: Sep 19, 2017 Seasonal Allergies Seasonal Allergies: No Past Medical History Surgeries: Yes (HEMORROID SURGERY, AND BILAT ARTHROSCOPIC KNEE) Eye Surgery Respiratory: Yes (nocturnal hypoxia requiring supplemental oxygen) COPD Cardiac: Yes Hypertension, Valvular Heart Disease Neurological: Yes (ALZHEIMERS) Dementia : No Reproductive Disorders: No Female Reproductive Disorders: Denies CLINICAL SUPPORT TECH History: Menopausal Genitourinary: Yes (incontinent) Bladder Infection, UTI-Chronic Gastrointestinal: Yes Chronic Constipation Musculoskeletal: Yes Osteoporosis, Arthritis, Rheumatoid Arthritis Endocrine: No HEENT: Yes Macular Degeneration, Glaucoma Loss of Vision: Bilateral Hearing Impairment: Denies Cancer: No Psychosocial: Yes Depression Integumentary: No Blood Disorders: No Family Medical History Reviewed Nursing Family Hx Patient reports no known family medical history. No Pertinent Family Hx Physical Exam Vital Signs Vital Signs - First Documented 01/08/19 20:15 Temp 96.7 Pulse 77 Resp 18 B/P (MAP) 95/62 (73) Pulse Ox 97 O2 Delivery Room Air Capillary Refill : Less Than 3 Seconds Height, Weight, BMI Height: 5'4.00" Weight: 159lbs. 5.0oz. 72.430833xs; 27.4 BMI Method:Estimated General Appearance: WD/WN, no apparent distress HEENT: PERRL/EOMI, TMs normal, pharynx normal Neck: tender lateral, other (c-collar remains in place. Reports mild neck pain.) Cardiovascular: regular rate, rhythm, no murmur Respiratory: lungs clear, normal breath sounds Gastrointestinal: non tender, soft Extremities: non-tender, normal inspection Neurologic/Psychiatric: alert, oriented x 3 Skin: normal color, warm/dry Dariusz Coma Score Best Eye Response: (4) Open Spontaneously Best Verbal Response: (5) Oriented Best Motor Response: (6) Obeys Commands Progress/Results/Core Measures Results/Orders My Orders Orders - GAGE HENAO MD Ct Head/Cervical Spine Wo (01/08/19 20:25) Chest 1 View, Ap/Pa Only (01/08/19 20:25) Lumbar Spine - 2-3 Views (01/08/19 20:25) Pelvis With Right Hip 2-3views (01/08/19 20:25) Shoulder, Right, 3 Views (01/08/19 20:29) Vital Signs/I&O 01/08/19 20:15 Temp 96.7 Pulse 77 Resp 18 B/P (MAP) 95/62 (73) Pulse Ox 97 O2 Delivery Room Air Blood Pressure Mean: 73 Progress Progress Note : Progress Note Seen and evaluated. CT head and neck ordered. X-ray chest, right shoulder, lumbar spine and right hip and pelvis. Monitor patient. 2141: C-spine cleared via CT. C-collar cleared and patient has full range of motion without complaint of pain. No significant acute findings. Family at bedside. They're able to get her back home. Discharged home with return precautions. Patient and family verbalize understanding instructions and agreement with plan. Diagnostic Imaging Diagonstic Imaging: CT Plain Films/CT/US/NM/MRI: c-spine, head Comments [facility] [place] NAME: JOAQUIM BOWER [facility] REC#: [id number] PT STATUS: REG ER : 1930 PHYSICIAN: GAGE HENAO MD ADMIT DATE: 01/08/19/ER Draft Date of Exam:01/08/19 CT HEAD/CERVICAL SPINE WO PROCEDURE: CT head and CT cervical spine without contrast. TECHNIQUE: Multiple contiguous axial images were obtained through the brain and cervical spine without the use of intravenous contrast. Sagittal and coronal reformations through the cervical spine were then performed. DATE: January 08, 2019. COMPARISON: CT head, October 20, 2013. INDICATION: 88-year-old female, fall. Head and neck pain. FINDINGS: There is proportional prominence of the ventricles and CSF spaces compatible with moderate cerebral volume loss. There are areas of low attenuation in the periventricular and subcortical white matter which are nonspecific but most likely relate to changes of chronic small vessel ischemic disease. There is no mass effect or midline shift. There is no acute intracranial hemorrhage. There is no abnormal extra-axial fluid collection. The visualized portions of the paranasal sinuses, mastoid air cells and middle ears are well aerated. There is no identified facet joint subluxation or dislocation. There are multilevel mild to moderate facet degenerative changes of the cervical spine. There is prominent chondrocalcinosis adjacent to the C1-C2 articulation as well as additionally present. There are multilevel severe disc degenerative changes of the cervical spine with multilevel posterior disc osteophyte complexes. There does appear to be at least moderate spinal stenosis at C3-C4 as well as at least moderate spinal stenosis at C4-C5 and C5-C6. The CT is limited for assessment of disc pathology as well as additional non-bony causes of foraminal and spinal stenosis. There is no identified acute fracture of the cervical spine. The visualized portions of the lung apices are grossly clear. There is a peripherally calcified right-sided thyroid nodule which measures 11 mm in size. There are carotid vascular calcifications noted. IMPRESSION: 1. No identified acute intracranial abnormality. 2. Moderate cerebral volume loss and changes of chronic small vessel ischemic disease. 3. No identified acute posttraumatic abnormality of the cervical spine. 4. Multilevel advanced disc and facet degenerative changes of the cervical spine with at least moderate spinal stenosis and possibly severe spinal stenosis at C3-C4, C4-C5 and C5-C6. Dictated on workstation # [id number] Dict: 01/08/192120 Trans: 01/08/192127 [facility] [id number] Interpreted by: MANUEL CALIXTO MD Electronically signed by: Jay Imaging: Xray Plain Films/CT/US/NM/MRI: chest Comments [facility] [place] NAME: JOAQUIM BOWER [facility] REC#: [id number] PT STATUS: REG ER : 1930 PHYSICIAN: GAGE HENAO MD ADMIT DATE: 01/08/19/ER Draft Date of Exam:01/08/19 CHEST 1 VIEW, AP/PA ONLY EXAMINATION: Chest radiograph, portable AP view. DATE: January 08, 2019. INDICATION: 88-year-old female, fall. Chest pain. COMPARISON: August 26, 2018. FINDINGS: There is a chronic appearing deformity of the right proximal humerus which appears similar to comparison exam. There is also a chronic appearing deformity of the right glenoid. There are end-stage left glenohumeral arthritic changes. Stable overall appearance of the cardiomediastinal silhouette. There is no identified pneumothorax. There is no large pleural effusion. There is no identified interval focal airspace consolidation. There are degenerative changes of the spine. IMPRESSION: 1. No identified interval acute cardiopulmonary abnormality. 2. Chronic appearing deformities associated with the right glenohumeral joint and end-stage left glenohumeral arthritis. Inflammatory and crystalline arthropathies are included in the differential diagnosis. Dictated on workstation # [id number] Dict: 01/08/192124 Trans: 01/08/192128 [facility] [id number] Interpreted by: MANUEL CALIXTO MD Electronically signed by: Jay Imaging: Xray Plain Films/CT/US/NM/MRI: other Comments [facility] [place] NAME: JOAQUIM BOWER [facility] REC#: [id number] PT STATUS: REG ER : 1930 PHYSICIAN: GAGE HENAO MD ADMIT DATE: 01/08/19/ER Draft Date of Exam:01/08/19 SHOULDER, RIGHT, 3 VIEWS EXAMINATION: Right shoulder radiographs, 3 views. COMPARISON: August 26, 2018. HISTORY: 88-year-old female, fall. Right shoulder pain. FINDINGS: There is a chronic appearing deformity of the right proximal humerus and glenoid which is unchanged since comparison exam. This likely relates to an end-stage arthritic process. The humeral head is not dislocated relative to the glenoid. There is abnormal alignment of the proximal humeral diaphysis relative to the humeral head on the scapular Y-view although this alignment is similar to comparison exam. There is no definite acute fracture. The acromioclavicular joint is normally aligned. There are right acromioclavicular degenerative changes. IMPRESSION: 1. 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 Sequela of inflammatory and crystalline arthropathies are considered. 2. There is abnormal alignment of the proximal humeral diaphysis relative to the humeral head component of the humerus which appears similar to comparison exam and may relate to a prior fracture. 3. No clearly identified new fracture of the humerus. If there is high clinical concern, dedicated CT right shoulder without contrast is recommended for further assessment. Dictated on workstation # [id number] Dict: 01/08/192126 Trans: 01/08/192133 [facility] [id number] Interpreted by: MANUEL CALIXTO MD Electronically signed by: Nancynstic Imaging: Xray Plain Films/CT/US/NM/MRI: pelvis, hip Comments [facility] [place] [place] NAME: JOAQUIM BOWER [facility] REC#: [id number] PT STATUS: REG ER : 1930 PHYSICIAN: GAGE HENAO MD ADMIT DATE: 01/08/19/ER Draft Date of Exam:01/08/19 PELVIS WITH RIGHT HIP 2-3VIEWS EXAMINATION: Pelvis, single view. Right hip, 2 additional views. COMPARISON: None. HISTORY: 88-year-old female, fall. Pelvic and right hip pain. FINDINGS: The left hip is not obviously dislocated. The pubic symphysis and sacroiliac joints are normally aligned. Bowel gas overlying the sacrum limits its evaluation. There are advanced degenerative changes of the visualized lumbar spine. There are atherosclerotic calcifications. Bones do appear somewhat demineralized. There is no identified acute fracture. There is mild/moderate joint space loss of both hips. There is chondrocalcinosis. IMPRESSION: 1. The bones appear somewhat demineralized without radiographically apparent fracture at the level of the pelvis or right hip. 2. Advanced degenerative changes of the lower lumbar spine. Dictated on workstation # [id number] Dict: 01/08/192125 Trans: 01/08/192129 [facility] [id number] Interpreted by: MANUEL CALIXTO MD Electronically signed by: Diagonstic Imaging: Xray Plain Films/CT/US/NM/MRI: other Comments [facility] [place] NAME: JOAQUIM BOWER [facility] REC#: [id number] PT STATUS: REG ER : 1930 PHYSICIAN: GAGE HENOA MD ADMIT DATE: 01/08/19/ER Draft Date of Exam:01/08/19 LUMBAR SPINE - 2-3 VIEWS EXAMINATION: Lumbar spine radiographs, 3 views. COMPARISON: None. HISTORY: 88-year-old female, fall. Low back pain. FINDINGS: There is grade 1 anterolisthesis of L4 on L5. The lateral radiographs are limited relating to difficulties with exposure. There is multilevel severe disc height loss. There is approximately 20% height loss of the T12 vertebral body which is age-indeterminate without comparison imaging. There are atherosclerotic calcifications. There are advanced facet degenerative changes, bilaterally, at L4-L5 and L5-S1. IMPRESSION: 1. Mild height loss of the T12 vertebral body which is age-indeterminate without comparison imaging. 2. Multilevel advanced disc and facet degenerative changes of the lumbar spine. 3. Advanced facet degenerative changes are most notable at L4-L5 and L5-S1. Grade 1 anterolisthesis of L4 on L5. Dictated on workstation # [id number] Dict: 01/08/192129 Trans: 01/08/192135 [facility] [id number] Interpreted by: MANUEL CALIXTO MD Electronically signed by: Departure Impression Primary Impression: Minor head injury Qualified Codes: S09.90XA - Unspecified injury of head, initial encounter Additional Impressions: Degenerative arthritis of right shoulder region Qualified Codes: M19.011 - Primary osteoarthritis, right shoulder Contusion of right hip Qualified Codes: S70.01XA - Contusion of right hip, initial encounter Low back pain Qualified Codes: M54.5 - Low back pain Disposition: 01 HOME, SELF-CARE Condition: Stable Departure-Patient Inst. Decision time for Depature: 21:58 Referrals: LLOYD MATHIS MD (PCP/Family) Primary Care Physician Patient Instructions: Contusion (DC), Joint Pain, Minor Head Injury (DC) Add. Discharge Instructions: All discharge instructions reviewed with patient and/or family. Voiced understanding. Continue home medications as directed. You will be sore over the next few days so you need to move carefully so as not to fall. Use your assistive devices when moving about. Follow-up with your Dr. in a few days for recheck. Return for worse pain, fever, vomiting, weakness, vision or balance problems, breathing problems or other concerns as needed. GAGE HENAO MD Jan 08, 2019 21:56
[2019-01-08 22:05] VITALS: BP 130/60
--- OUTSIDE RECORDS SUMMARY | 2019-01-09 00:33 | XMS REPORT | Continuity of Care Document ---
Author Author [facility] Organization [facility] Address Unknown Phone Unavailable Allergies Active Description Code Type Severity Reaction Onset Reported/Identified Relationship to Patient Clinical Status Yes meperidine [id number] Drug Allergy Mild N/A 01/27/2010 Medications There [...] LLOYD MATHIS MD Ot 682.9 03/08/2015 LLOYD MAHTIS MD Ot 714.0 03/08/2015 LLOYD MATHIS MD [...] 04/20/2015 SHANICE RODRIGUEZ MD Ot 440.23 ATHEROSCL [place] ARTER EXTREMITIES W [facility] 04/20/2015 SHANICE RODRIGUEZ [...] Ot Z87.891 PERSONAL HISTORY OF NICOTINE DEPENDENCE 08/26/2018 BRUERIN EDWARDS MD, Ot F03.90 UNSPECIFIED DEMENTIA WITHOUT BEHAVIORAL 08/26/2018 ERIN ARIAS MD Ot F32.9 MAJOR DEPRESSIVE DISORDER, SINGLE EPISOD 08/26/2018 ERIN ARIAS MD, Ot G30.9 ALZHEIMER'S DISEASE, UNSPECIFIED 08/26/2018 ERIN ARIAS MD, Ot I10 ESSENTIAL (PRIMARY) HYPERTENSION 08/26/2018 ERIN ARIAS MD, Ot M25.511 PAIN IN RIGHT SHOULDER 08/26/2018 ERIN ARIAS MD, Ot 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 08/26/2018 ERIN ARIAS MD, Ot S42.291A OTH DISP FX OF UPPER END OF RIGHT HUMERU 08/26/2018 ERIN ARIAS MD, Ot W19.XXXA UNSPECIFIED FALL, INITIAL ENCOUNTER 08/26/2018 ERIN ARIAS MD Ot Z79.51 FDC (CURRENT) USE OF INHALED STERO 08/26/2018 ERIN ARIAS MD, Ot Z87.440 PERSONAL HISTORY OF URINARY (TRACT) INFE 08/26/2018 ERIN ARIAS MD Ot Z87.448 PERSONAL HISTORY OF OTHER DISEASES OF UR 08/26/2018 ERIN ARIAS MD, Ot Z87.891 PERSONAL HISTORY OF NICOTINE DEPENDENCE 08/26/2018 ERIN ARIAS MD Ot Z88.8 ALLERGY STATUS TO OT DRUG/MEDS/BIOL SUB 08/28/2018 ERIN ARIAS MD, Ot F03.90 UNSPECIFIED DEMENTIA WITHOUT BEHAVIORAL 08/28/2018 ERIN ARIAS MD, Ot F32.9 MAJOR DEPRESSIVE DISORDER, SINGLE EPISOD 08/28/2018 ERIN ARIAS MD, Ot G30.9 ALZHEIMER'S DISEASE, UNSPECIFIED 08/28/2018 ERIN ARIAS MD, Ot I10 ESSENTIAL (PRIMARY) HYPERTENSION 08/28/2018 ERIN ARIAS MD, Ot M25.511 PAIN IN RIGHT SHOULDER 08/28/2018 ERIN ARIAS MD Ot 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 08/28/2018 ERIN ARIAS MD, Ot S42.291A OTH DISP FX OF UPPER END OF RIGHT HUMERU 08/28/2018 ERIN ARIAS MD, Ot W19.XXXA UNSPECIFIED FALL, INITIAL ENCOUNTER 08/28/2018 ERIN ARIAS MD, Ot Z79.51 JEWEL INSERTER (CURRENT) USE OF INHALED STERO 08/28/2018 ERIN ARIAS MD, Ot Z87.440 PERSONAL HISTORY OF URINARY (TRACT) INFE 08/28/2018 ERIN ARIAS MD, Ot Z87.448 PERSONAL HISTORY OF OTHER DISEASES OF UR 08/28/2018 ERIN ARIAS MD, Ot Z87.891 PERSONAL HISTORY OF NICOTINE DEPENDENCE 08/28/2018 ERIN ARIAS MD, Ot Z88.8 ALLERGY STATUS TO OTH DRUG/MEDS/BIOL SUB Procedures Code Description Performed By Performed On [...] - 12/18/17 13:25 QUANTITY OF GROWTH . NRG Bacterial blood culture SEE COMMEN NR Complete urinalysis with reflex to culture - [...] culture - 12/18/17 13:35 Bacterial urine culture [id number] NRG COLONY COUNT 10,000/ML - 100,000/ML NRG Influenza virus A and B antigen detection - 12/18/17 13:41 FLU RESULT NEGATIVE FOR INFLUENZA A AND B ANTIGENS BY IA NR Bacterial blood culture - 12/18/17 14:05 Bacterial blood culture NG NR Complete blood count (CBC) with automated white [...] Status Pt. Type Provider Facility Loc./Unit Complaint [id number] 01/08/2019 20:15:00 01/08/2019 22:05:00 DIS Emergency GAGE HENAO MD [facility] ER FALL [id number] 08/26/2018 10:04:00 08/26/2018 13:30:00 DIS Emergency ERIN ARIAS MD [facility] ER FALL [id number] 12/18/2017 17:20:00 12/20/2017 14:05:00 DIS Inpatient DEB MEYERS, TAZ [place] [facility] 4TH UTI,DELERIUM HYPOACTIVE [id number] 08/13/2016 09:51:00 08/13/2016 23:59:59 CLS Outpatient LLOYD MATHIS MD [facility] RT COPD [id number] 02/22/2016 14:19:00 02/22/2016 17:45:00 DIS Emergency ERIN ARIAS MD [facility] ER LOW O2 [id number] 11/11/2015 13:47:00 11/12/2015 13:00:00 DIS Inpatient LLOYD MATHIS MD [facility] 4TH UTI;FEVER [id number] 04/03/2015 13:05:00 04/20/2015 14:00:00 DIS Outpatient SHANICE RODRIGUEZ MD [facility] WOUNDCARE [id number] 03/06/2015 12:43:00 03/12/2015 15:10:00 DIS Inpatient LLOYD MATHIS MD [facility] SURGICAL SEPSIS UTI [id number] 10/20/2013 14:54:00 10/20/2013 23:59:59 CLS Outpatient LLOYD MATHIS MD [facility] RAD FALLS [id number] 07/25/2013 08:30:00 07/25/2013 23:59:59 CLS Outpatient LLOYD MATHIS MD [facility] RAD SCREENING [id number] 02/13/2015 11:55:00 Document Registration [id number] 01/20/2012 14:22:00 Document Registration [id number] 07/07/2011 10:53:00 Document Registration [id number] 02/19/2018 00:00:00 Document Registration
== END 2019-01-08 22:05 | disposition home or self-care (01) ==
LOC: EDUNIT# 20:14 → ER 20:15
DX: S09.90XA Unspecified injury of head, initial encounter (principal); S70.01XA Contusion of right hip, initial encounter; M54.5 Low back pain; M19.011 Primary osteoarthritis, right shoulder; J44.9 Chronic obstructive pulmonary disease, unspecified; I10 Essential (primary) hypertension; F03.90 Unspecified dementia, unspecified severity, without behavioral disturbance, psychotic disturbance, mood disturbance, and anxiety; M81.0 Age-related osteoporosis without current pathological fracture; M06.9 Rheumatoid arthritis, unspecified; F32.9 Major depressive disorder, single episode, unspecified; R40.2142 Coma scale, eyes open, spontaneous, at arrival to emergency department; R40.2252 Coma scale, best verbal response, oriented, at arrival to emergency department; R40.2362 Coma scale, best motor response, obeys commands, at arrival to emergency department; Z87.448 Personal history of other diseases of urinary system; Z87.440 Personal history of urinary (tract) infections; Z99.81 Dependence on supplemental oxygen; Z88.8 Allergy status to other drugs, medicaments and biological substances; Z79.51 Long term (current) use of inhaled steroids; Z87.891 Personal history of nicotine dependence; Z98.890 Other specified postprocedural states; W01.198A Fall on same level from slipping, tripping and stumbling with subsequent striking against other object, initial encounter; Y92.009 Unspecified place in unspecified non-institutional (private) residence as the place of occurrence of the external cause
CPT/HCPCS: 70450; 71045; 72100; 72125; 73030

== ENCOUNTER 2019-01-12 18:45 | Emergency (ER) | payer MEDICARE, MEDICAID ==
[~2019-01-12] VITALS: Ht 170.2 cm; Wt 72.6 kg
--- OUTSIDE RECORDS SUMMARY | 2019-01-12 18:50 | XMS REPORT | Continuity of Care Document ---
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 04/20/2015 SHANICE RODRIGUEZ [...] Patten Ot I10 ESSENTIAL (PRIMARY) HYPERTENSION 11/12/2015 EDL MEYERS, LLOYD Patten Ot I34.1 NONRHEUMATIC MITRAL (VALVE) PROLAPSE 11/12/2015 DEL MYEERS, LLOYD Patten Ot M06.9 RHEUMATOID ARTHRITIS, UNSPECIFIED [...] MD Ot K59.09 OTHER CONSTIPATION 12/20/2017 TAZ BODY MD Ot M06.9 RHEUMATOID ARTHRITIS, UNSPECIFIED 12/20/2017 [...] ENCOUNTER 08/26/2018 ERIN ARIAS MD Ot Z79.51 ASSISTED (CURRENT) USE OF INHALED STERO 08/26/2018 ERIN [...] ENCOUNTER 08/28/2018 ERIN ARIAS MD, Ot Z79.51 PHYSICIAN AIDE (CURRENT) USE OF INHALED STERO 08/28/2018 ERIN ARIAS MD, Ot Z87.440 PERSONAL HISTORY OF URINARY (TRACT) INFE 08/28/2018 ERIN ARIAS MD, Ot Z87.448 PERSONAL HISTORY OF OTHER DISEASES OF UR 08/28/2018 ERIN ARIAS MD, Ot Z87.891 PERSONAL HISTORY OF NICOTINE DEPENDENCE 08/28/2018 ERIN ARIAS MD, Ot Z88.8 ALLERGY STATUS TO OT DRUG/MEDS/BIOL SUB 01/11/2019 GAGE HENAO MD Ot F03.90 UNSPECIFIED DEMENTIA WITHOUT BEHAVIORAL 01/11/2019 GAGE HENAO MD, Ot F32.9 MAJOR DEPRESSIVE DISORDER, SINGLE EPISOD 01/11/2019 GAGE HENAO MD Ot I10 ESSENTIAL (PRIMARY) HYPERTENSION 01/11/2019 GAGE HENAO MD, Ot J44.9 CHRONIC OBSTRUCTIVE PULMONARY DISEASE, U 01/11/2019 GAGE HENAO MD, Ot M06.9 RHEUMATOID ARTHRITIS, UNSPECIFIED 01/11/2019 GAGE HENAO MD Ot M19.011 PRIMARY OSTEOARTHRITIS, RIGHT SHOULDER 01/11/2019 GAGE HENAO MD Ot M54.2 CERVICALGIA 01/11/2019 GAGE HENAO MD, Ot M54.5 LOW BACK PAIN 01/11/2019 GAGE HENAO MD Ot 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 01/11/2019 GAGE HENAO MD, Ot R40.2142 COMA SCALE, EYES OPEN, SPONTANEOUS, EMR 01/11/2019 GAGE HENAO MD, Ot R40.2252 COMA SCALE, BEST VERBAL RESPONSE, ORIENT 01/11/2019 GAGE HENAO MD, Ot R40.2362 COMA SCALE, BEST MOTOR RESPONSE, OBEYS C 01/11/2019 GAGE HENAO MD, Ot S09.90XA UNSPECIFIED INJURY OF HEAD, INITIAL ENCO 01/11/2019 GAGE HENAO MD, Ot S70.01XA CONTUSION OF RIGHT HIP, INITIAL ENCOUNTE 01/11/2019 GAGE HENAO MD, Ot W01.198A FALL SAME LEV FROM SLIP/TRIP W STRIKE AG 01/11/2019 GAGE HENAO MD, Ot Y92.009 [facility] IN [facility] NON-INSTITUT (PRIVATE 01/11/2019 GAGE HENAO MD, Ot Z79.51 ASSISTED (CURRENT) USE OF INHALED STERO 01/11/2019 GAGE HENAO MD, Ot Z87.440 PERSONAL HISTORY OF URINARY (TRACT) INFE 01/11/2019 GAGE HENAO MD, Ot Z87.448 PERSONAL HISTORY OF OTHER DISEASES OF UR 01/11/2019 GAGE HENAO MD, Ot Z87.891 PERSONAL HISTORY OF NICOTINE DEPENDENCE 01/11/2019 GAGE HENAO MD, Ot Z88.8 ALLERGY STATUS TO OTH DRUG/MEDS/BIOL SUB 01/11/2019 GAGE HENAO MD, Ot Z98.890 OTHER SPECIFIED POSTPROCEDURAL STATES 01/11/2019 GAGE HENAO MD, Ot Z99.81 DEPENDENCE ON SUPPLEMENTAL OXYGEN Procedures Code Description Performed By Performed On [...] Automated blood platelet mean volume measurement 9.5 [[facility]] 7.4-10.4 Automated blood neutrophils/100 leukocytes 75 % [...] . NRG Bacterial blood culture SEE COMMEN NRG Complete urinalysis with reflex to culture - [...] culture - 12/18/17 13:35 Bacterial urine culture [id number] NRG COLONY COUNT 10,000/ML - 100,000/ML NRG [...] Status Pt. Type Provider Facility Loc./Unit Complaint [id number] 01/08/2019 20:15:00 01/08/2019 22:05:00 DIS Outpatient GAGE HENAO MD [facility] ER FALL [id number] 08/26/2018 10:04:00 08/26/2018 13:30:00 DIS Emergency ERIN ARIAS MD [facility] ER FALL [id number] 12/18/2017 17:20:00 12/20/2017 14:05:00 DIS Inpatient TAZ BOYD MD [facility] 4TH UTI,DELERIUM HYPOACTIVE [id number] 08/13/2016 09:51:00 08/13/2016 23:59:59 CLS Outpatient LLOYD MATHIS MD [facility] RT COPD [id number] 02/22/2016 14:19:00 02/22/2016 17:45:00 DIS Emergency ERIN ARIAS MD [facility] ER LOW O2 [id number] 11/11/2015 13:47:00 11/12/2015 13:00:00 DIS Inpatient LLOYD MATHIS MD [facility] 4TH UTI;FEVER [id number] 04/03/2015 13:05:00 04/20/2015 14:00:00 DIS Outpatient SHANICE RODRIGUEZ MD [facility] WOUNDCARE [id number] 03/06/2015 12:43:00 03/12/2015 15:10:00 DIS Inpatient LLOYD MATHIS MD [facility] SURGICAL SEPSIS UTI [id number] 10/20/2013 14:54:00 10/20/2013 23:59:59 CLS Outpatient LLOYD MATHIS MD [facility] RAD FALLS [id number] 07/25/2013 08:30:00 07/25/2013 23:59:59 CLS Outpatient DEL MEYERS, LLOYD Patten [facility] RAD SCREENING [id number] 01/12/2019 18:45:00 ACT Emergency SHANICE MEYERS, CHRISTO Holland [facility] ER LOW OXYGEN [id number] 02/13/2015 11:55:00 Document Registration [id number] 01/20/2012 14:22:00 Document Registration [id number] 07/07/2011 10:53:00 Document Registration [id number] 02/19/2018 00:00:00 Document Registration
--- NOTE | 2019-01-12 18:59 | ED Respiratory ---
General Chief Complaint: General Problems/Pain Stated Complaint: LOW OXYGEN Source: patient, EMS, intermediate records Exam Limitations: no limitations History of Present Illness Date Seen by Provider: Jan 12, 2019 Time Seen by Provider: 18:48 Initial Comments The patient presents to ER by EMS with chief complaint she's having some cyanosis in her hands and face and neck for the past 2 days. Oxygen sats of been reading low but no specific numbers per intermediate. EMS reports when they got there her hands were quite cold but not cyanotic and she had no circumoral cyanosis nor she on oxygen. They put a sat probe on her ear got a good pulsatile waveform with 100% saturation. Patient has no subjective complaint of cough, shortness of breath fevers chills or chest pain. She says she is having some pain in her back specialist on the right side where she's had kidney infections in the past. She has some occasional dysuria. [facility] records indicate she is on her last day of antibiotics for a urinary tract infection. EMS discussed the case with Norma her primary care provider who said that she does have a history of being confused. Allergies and Home Medications Allergies Coded Allergies: meperidine (Unverified Allergy, Mild, 01/27/10) Home Medications Acetaminophen 500 Mg Tablet, 500 MG PO 0800,1400,1999, (Reported) Albuterol Sulfate 2.5 Mg/3 Ml Vial.neb, 2.5 MG NEB Q2H PRN for SHORTNESS OF BREATH, (Reported) Alendronate Sodium 70 Mg Tablet, 70 MG PO Th, (Reported) Amlodipine Besylate 5 Mg Tablet, 5 MG PO DAILY, (Reported) Bacillus Coagulans 1 Each Tab.chew, 1 EACH PO AC Prescribed by: TAZ BOYD on 12/20/17 1052 Buspirone HCl 10 Mg Tablet, 10 MG PO TID, (Reported) Calcium Carbonate/Vitamin D3 1 Each Tablet, 1 TAB PO DAILY, (Reported) Cefdinir 300 Mg Capsule, 300 MG PO BID Prescribed by: TAZ BOYD on 12/20/17 1052 Cholecalciferol (Vitamin D3) 1,000 Unit Capsule, 1,000 UNIT PO DAILY, (Reported) Docusate Sodium 100 Mg Capsule, 100 MG PO BID, (Reported) Docusate Sodium 100 Mg Capsule, 100 MG PO DAILY Prescribed by: ERIN NGUYEN on 08/26/18 1300 Donepezil HCl 10 Mg Tablet, 10 MG PO HS, (Reported) Dorzolamide HCl/Timolol Maleat 10 Ml Drops, 1 DROP OU BID, (Reported) Enalapril Maleate 10 Mg Tablet, 10 MG PO BID, (Reported) Fluticasone/Salmeterol 1 Each Blst.w.dev, 1 PUFF IH BID, (Reported) Folic Acid 1 Mg Tablet, 1 MG PO DAILY, (Reported) Guaifenesin 600 Mg Tab.er.12h, 600 MG PO TID, (Reported) Guaifenesin/Dextromethorphan 5 Ml Syrup, 10 ML PO Q4H PRN for COUGH, (Reported) Hydrochlorothiazide 25 Mg Tablet, 25 MG PO DAILY, (Reported) Hydrocodone/Acetaminophen 1 Each Tablet, 1-2 EACH PO Q6H PRN for PAIN-MODERATE Use while on hydrocodone. Hold if loose stools. Prescribed by: ERIN NGUYEN on 08/26/18 1300 Latanoprost 2.5 Ml Drops, 1 DROP OU HS, (Reported) Loratadine 10 Mg Tablet, 10 MG PO DAILY PRN for ALLERGIES, (Reported) Lorazepam 0.5 Mg Tablet, 0.5 MG PO Q8H PRN for ANXIETY, (Reported) Memantine HCl 28 Mg Cap.spr.24, 28 MG PO DAILY, (Reported) Menthol/Camphor 4 Gm Oint...g., TP BID, (Reported) APPLY AND MASSAGE INTO RT SHOULDER Methotrexate Tablet 2.5 Mg Tablet, 15 MG PO Th, (Reported) TAKES 6 (2.5 MG) TABLETS Metoprolol Succinate 50 Mg Tab.er.24h, 50 MG PO DAILY, (Reported) Multivitamin 1 Each Tablet, 1 TAB PO DAILY, (Reported) Polymyxin B Sulf/Trimethoprim 10 Ml Drops, 10 ML OP Q6H Prescribed by: TAZ BOYD on 12/20/17 1104 Solifenacin Succinate 5 Mg Tablet, 5 MG PO DAILY, (Reported) Tramadol HCl 50 Mg Tablet, 25-50 MG PO Q8H PRN for PAIN-MODERATE, (Reported) Tramadol HCl 50 Mg Tablet, 50 MG PO 1100,1700, (Reported) Patient Home Medication List Home Medication List Reviewed: Yes Review of Systems Review of Systems Constitutional: No chills, No diaphoresis EENTM: No ear discharge, No hearing loss, No ear pain Respiratory: No cough, No short of breath, No wheezing Cardiovascular: No chest pain, No edema, No Hx of Intervention, No palpitations Gastrointestinal: No abdominal pain, No constipation, No diarrhea, No nausea, No vomiting Genitourinary: No dysuria, No frequency Musculoskeletal: No back pain, No joint pain Skin: No pruritus, No rash Past Knvvfqh-Einksh-Lwnzvb Hx Patient Social History Alcohol Use: Denies Use Recreational Drug Use: No Smoking Status: Former Smoker Type Used: Cigarettes Former Smoker, Quit: Nov 30, 2001 Recent Foreign Travel: No Contact w/Someone Who Travel: No Recent Hopitalizations: No Immunizations Up To Date Tetanus Booster (TDap): Unknown Date of Pneumonia Vaccine: Jul 31, 2008 Date of Influenza Vaccine: Sep 19, 2017 Seasonal Allergies Seasonal Allergies: No Past Medical History Surgeries: Yes (HEMORROID SURGERY, AND BILAT ARTHROSCOPIC KNEE) Eye Surgery Respiratory: Yes (nocturnal hypoxia requiring supplemental oxygen) COPD Cardiac: Yes Hypertension, Valvular Heart Disease Neurological: Yes (ALZHEIMERS) Dementia Reproductive Disorders: No Female Reproductive Disorders: Denies [employer] History: Menopausal Genitourinary: Yes (incontinent) Bladder Infection, UTI-Chronic Gastrointestinal: Yes Chronic Constipation Musculoskeletal: Yes Osteoporosis, Arthritis, Rheumatoid Arthritis Endocrine: No HEENT: Yes Macular Degeneration, Glaucoma Loss of Vision: Bilateral Hearing Impairment: Denies Cancer: No Psychosocial: Yes Depression Integumentary: No Blood Disorders: No Family Medical History Patient reports no known family medical history. No Pertinent Family Hx Physical Exam Vital Signs - First Documented 01/12/19 18:53 Temp 97.1 Pulse 66 Resp 20 B/P (MAP) 115/60 (78) Pulse Ox 100 O2 Delivery Room Air Capillary Refill : Height: 5'4.00" Weight: 159lbs. 5.0oz. 72.445097hg; 27.4 BMI Method:Estimated General Appearance: WD/WN, no apparent distress Eyes: Bilateral Eye Normal Inspection, Bilateral Eye PERRL, Bilateral Eye EOMI HEENT: PERRL/EOMI, normal ENT inspection, TMs normal, pharynx normal (Oral mucosa is mildly dry) Neck: non-tender, full range of motion, supple, normal inspection Respiratory: chest non-tender, lungs clear, normal breath sounds, no respiratory distress, no accessory muscle use Cardiovascular: normal peripheral pulses, regular rate, rhythm, no edema Gastrointestinal: normal bowel sounds, non tender, soft Extremities: normal capillary refill Neurologic/Psychiatric: alert, normal mood/affect, oriented x 3 Skin: normal color, warm/dry Progress/Results/Core Measures Suspected Sepsis SIRS Temperature: Pulse: Respiratory Rate: Laboratory Tests 01/12/19 19:17: White Blood Count 15.4H Blood Pressure / Mean: Laboratory Tests 01/12/19 19:17: Creatinine 1.60H, Platelet Count 225, Total Bilirubin 0.4 Results/Orders Lab Results Laboratory Tests Test 01/12/19 19:17 01/12/19 20:15 Range/Units White Blood Count 15.4 H 4.3-11.0 10^3/uL Red Blood Count 3.73 L 4.35-5.85 10^6/uL Hemoglobin 11.7 11.5-16.0 G/DL Hematocrit 37 35-52 % Mean Corpuscular Volume 99 80-99 FL Mean Corpuscular Hemoglobin 31 25-34 PG Mean Corpuscular Hemoglobin Concent 32 32-36 G/DL Red Cell Distribution Width 16.6 H 10.0-14.5 % Platelet Count 225 130-400 10^3/uL Mean Platelet Volume 8.7 7.4-10.4 FL Neutrophils (%) (Auto) 86 H 42-75 % Lymphocytes (%) (Auto) 7 L 12-44 % Monocytes (%) (Auto) 7 0-12 % Eosinophils (%) (Auto) 0 0-10 % Basophils (%) (Auto) 0 0-10 % Neutrophils # (Auto) 13.2 H 1.8-7.8 X 10^3 Lymphocytes # (Auto) 1.1 1.0-4.0 X 10^3 Monocytes # (Auto) 1.1 H 0.0-1.0 X 10^3 Eosinophils # (Auto) 0.0 0.0-0.3 10^3/uL Basophils # (Auto) 0.0 0.0-0.1 10^3/uL Neutrophils % (Manual) 81 % Lymphocytes % (Manual) 13 % Monocytes % (Manual) 5 % Eosinophils % (Manual) 0 % Basophils % (Manual) 0 % Band Neutrophils 0 % Reactive Lymphocytes 1 % Blood Morphology Comment NORMAL Sodium Level 138 135-145 MMOL/L Potassium Level 3.7 3.6-5.0 MMOL/L Chloride Level 99 98-107 MMOL/L Carbon Dioxide Level 28 21-32 MMOL/L Anion Gap 11 5-14 MMOL/L Blood Urea Nitrogen 62 H 7-18 MG/DL Creatinine 1.60 H 0.60-1.30 MG/DL Estimat Glomerular Filtration Rate 30 BUN/Creatinine Ratio 39 Glucose Level 115 H 70-105 MG/DL Calcium Level 9.8 8.5-10.1 MG/DL Corrected Calcium 10.2 H 8.5-10.1 MG/DL Total Bilirubin 0.4 0.1-1.0 MG/DL Aspartate Amino Transf (AST/SGOT) 16 5-34 U/L Alanine Aminotransferase (ALT/SGPT) 11 0-55 U/L Alkaline Phosphatase 63 40-136 U/L C-Reactive Protein High Sensitivity 4.10 H 0.00-0.50 MG/DL B-Type Natriuretic Peptide 38.6 <100.0 PG/ML Total Protein 6.0 L 6.4-8.2 GM/DL Albumin 3.5 3.2-4.5 GM/DL Urine Color YELLOW Urine Clarity SLIGHTLY CLOUDY Urine pH 5 5-9 Urine Specific [place] 1.020 1.016-1.022 Urine Protein 3+ H NEGATIVE Urine Glucose (UA) NEGATIVE NEGATIVE Urine Ketones NEGATIVE NEGATIVE Urine Nitrite NEGATIVE NEGATIVE Urine Bilirubin NEGATIVE NEGATIVE Urine Urobilinogen NORMAL NORMAL MG/DL Urine Leukocyte Esterase 3+ H NEGATIVE Urine RBC (Auto) 4+ H NEGATIVE Urine RBC 2-5 H /HPF Urine WBC >100 H /HPF Urine Squamous Epithelial Cells 2-5 /HPF Urine Crystals NONE /LPF Urine Bacteria LARGE H /HPF Urine Casts NONE /LPF Urine Mucus NEGATIVE /LPF Urine Yeast FEW H /HPF Urine Culture Indicated YES My Orders Orders - CHRISTO PRASAD BNP (01/12/19 18:54) Cbc With Automated Diff (01/12/19 18:54) Comprehensive Metabolic Panel (01/12/19 18:54) Hs C Reactive Protein (01/12/19 18:54) Ua Culture If Indicated (01/12/19 18:54) Chest 1 View, Ap/Pa Only (01/12/19 18:54) Manual Differential (01/12/19 19:17) Urine Culture (01/12/19 20:15) Vital Signs/I&O 01/12/19 18:53 Temp 97.1 Pulse 66 Resp 20 B/P (MAP) 115/60 (78) Pulse Ox 100 O2 Delivery Room Air Capillary Refill : Progress Note : Time: 18:58 Progress Note Patient has some subjective complaints of urinary symptoms so we'll check a urine. We'll obtain some basic labs, chest x-ray but her lung sounds are clear her oxygen saturations 100% her heart rates in the 60s. She has aseptic vital signs; no fever. We've offered her some Tylenol or Motrin for her back pain she' s declined. Diagnostic Imaging Diagonstic Imaging: Xray Plain Films/CT/US/NM/MRI: chest (1v) Comments NAME: [facility] REC#: [id number] PHYSICIAN: CHRISTO PRASAD MD CC: REHAN CAMARGO MD; CHRISTO PRASAD Page 1 of 1 RADIOLOGY REPORT [facility] [place] CC: REHAN CAMARGO MD; CHRISTO PRASAD Page 1 of 1 RADIOLOGY REPORT NAME: [facility] REC#: [id number] PT STATUS: REG ER : 1930 PHYSICIAN: CHRISTO PRASAD MD ADMIT DATE: 01/12/19/ER Signed Date of Exam: 01/12/19 CHEST 1 VIEW, AP/PA ONLY EXAMINATION: Portable erect AP chest at 7:01 p.m. INDICATION: Respiratory distress. FINDINGS: The mild cardiomegaly noted on the prior exam of 01/08/2019 is again evident and no different. The chronic pulmonary changes evident on the prior study are again visualized and no different. There is a lucency along the periphery of the right upper lobe. This finding is felt to be related to a skin fold and not to pneumothorax. There is no sign of failure, pneumonia, or pleural effusion. The mediastinum is not widened. The severe degenerative changes involving the glenohumeral joint seen previously are again evident and no different. There is no sign of an acute bony abnormality. IMPRESSION: 1. There is mild cardiomegaly and chronic pulmonary disease, but there is no acute abnormality identified. 2. There does appear to be a skin fold overlying the right thorax. 3. These results were discussed with Peter. Tabitha MASON. Dictated by: Dictated on workstation # [id number] Dict: 01/12/19 1909 Trans: 01/12/192008 Interpreted by: REHAN CAMARGO MD Electronically signed by: REHAN CAMARGO MD 01/12/192008 Reviewed: Reviewed by Me Departure Impression Primary Impression: Urinary tract infection Qualified Codes: N30.01 - Acute cystitis with hematuria Disposition: HOME, SELF-CARE Condition: Stable Departure-Patient Inst. Decision time for Depature: 22:54 Referrals: LLOYD MATHIS MD (PCP/Family) Primary Care Physician Patient Instructions: Urinary Tract Infection, Adult (DC) Add. Discharge Instructions: Drink plenty fluids and take the antibiotics cefdinir twice daily with food. Start taking probiotics twice a day while on the antibiotics. Follow-up with primary care. All discharge instructions reviewed with patient and/or family. Voiced understanding. Scripts Cefdinir (Cefdinir) 300 Mg Capsule 300 MG PO BID for 7 Days, #14 CAP 0 Refills Prov: CHRISTO PRASAD 01/12/19 Copy Copies To 1: LLOYD MATHIS MD, TITUS J Jan 12, 2019 18:59
--- NOTE | 2019-01-12 19:17 | Diagnostic Imaging Report ---
EXAMINATION: Portable erect AP chest at 7:01 p.m. INDICATION: Respiratory distress. FINDINGS: The mild cardiomegaly noted on the prior exam of 01/08/2019 is again evident and no different. The chronic pulmonary changes evident on the prior study are again visualized and no different. There is a lucency along the periphery of the right upper lobe. This finding is felt to be related to a skin fold and not to pneumothorax. There is no sign of failure, pneumonia, or pleural effusion. The mediastinum is not widened. The severe degenerative changes involving the glenohumeral joint seen previously are again evident and no different. There is no sign of an acute bony abnormality. IMPRESSION: 1. There is mild cardiomegaly and chronic pulmonary disease, but there is no acute abnormality identified. 2. There does appear to be a skin fold overlying the right thorax. 3. These results were discussed with Peter. Tabitha MASON. Dictated by: Dictated on workstation # [id number]
[2019-01-12 19:25] LABS: BASOPHILS % (AUTO) 0 % (0-10); EOSINOPHILS % (AUTO) 0 % (0-10); HEMATOCRIT 37 % (35-52); HEMOGLOBIN 11.7 G/DL (11.5-16.0); LYMPHOCYTES # (AUTO) 1.1 X 10^3 (1.0-4.0); LYMPHOCYTES % (AUTO) 7 % (12-44); MEAN CORPUSCULAR HEMOGLOBIN 31 PG (25-34); MEAN CORPUSCULAR HGB CONC 32 G/DL (32-36); MEAN CORPUSCULAR VOLUME 99 FL (80-99); MEAN PLATELET VOLUME 8.7 FL (7.4-10.4); MONOCYTES # (AUTO) 1.1 X 10^3 (0.0-1.0); MONOCYTES % (AUTO) 7 % (0-12); NEUTROPHILS # (AUTO) 13.2 X 10^3 (1.8-7.8); NEUTROPHILS % (AUTO) 86 % (42-75); PLATELET COUNT 225 10^3/uL (130-400); RED CELL DISTRIBUTION WIDTH 16.6 % (10.0-14.5); WHITE BLOOD COUNT 15.4 10^3/uL (4.3-11.0)
[2019-01-12 19:44] LABS: ALBUMIN 3.5 GM/DL (3.2-4.5); BILIRUBIN,TOTAL 0.4 MG/DL (0.1-1.0); CALCIUM 9.8 MG/DL (8.5-10.1); POTASSIUM 3.7 MMOL/L (3.6-5.0)
[2019-01-12 20:00] LABS: NEUTROPHILS % (MANUAL) 81 %
[2019-01-12 20:01] LABS: BAND NEUTROPHILS 0 %; BASOPHILS % (MANUAL) 0 %; EOSINOPHILS % (MANUAL) 0 %; LYMPHOCYTES % (MANUAL) 13 %; MONOCYTES % (MANUAL) 5 %; RBC MORPH NORMAL; REACTIVE LYMPHOCYTES 1 %
[2019-01-12 20:28] LABS: CREATININE SERUM 1.6 MG/DL (0.60-1.30)
[2019-01-12 21:14] LABS: BILIRUBIN,URINE NEGATIVE (NEGATIVE); CLARITY,URINE SLIGHTLY CLOUDY; COLOR,URINE YELLOW; GLUCOSE, URINE (UA) NEGATIVE (NEGATIVE); KETONES,URINE NEGATIVE (NEGATIVE); LEUKOCYTE ESTERASE ,URINE 3+ (NEGATIVE); NITRITE,URINE NEGATIVE (NEGATIVE); PH,URINE 5 (5-9); PROTEIN,URINE 3+ (NEGATIVE); UROBILINOGEN,URINE NORMAL (NORMAL)
[2019-01-12 21:23] LABS: BACTERIA,URINE LARGE /HPF; WBC,URINE >100 /HPF; YEAST,URINE FEW /HPF
[2019-01-12] MEDS ORDERED: CEFD300C3 PO ×2 (22:55→23:05)
[2019-01-12 23:16] VITALS: BP 133/69
== END 2019-01-12 23:16 | disposition home or self-care (01) ==
LOC: EDUNIT# 18:45 → ER 18:45
DX: N39.0 Urinary tract infection, site not specified (principal); J44.9 Chronic obstructive pulmonary disease, unspecified; I10 Essential (primary) hypertension; G30.9 Alzheimer's disease, unspecified; M06.9 Rheumatoid arthritis, unspecified; F32.9 Major depressive disorder, single episode, unspecified; F03.90 Unspecified dementia, unspecified severity, without behavioral disturbance, psychotic disturbance, mood disturbance, and anxiety; M81.0 Age-related osteoporosis without current pathological fracture; Z87.19 Personal history of other diseases of the digestive system; Z87.440 Personal history of urinary (tract) infections; Z87.448 Personal history of other diseases of urinary system; Z88.8 Allergy status to other drugs, medicaments and biological substances; Z79.51 Long term (current) use of inhaled steroids; Z87.891 Personal history of nicotine dependence; Z98.890 Other specified postprocedural states
CPT/HCPCS: 36415; 51701; 71045; 80053; 81000; 83880; 85007; 85027; 86141; 87088

== ENCOUNTER 2019-01-13 17:30 | Outpatient (CLI) | payer MEDICARE, MEDICAID ==
[~2019-01-13] VITALS: Ht 170.2 cm; Wt 72.7 kg
[2019-01-13 17:40] VITALS: BP 139/70
[2019-01-13] MEDS ORDERED: NS IV 1000 ML 1,000 ML IV ONE (17:45)
[2019-01-13] MEDS ORDERED: LIDOCAINE PF 1% 5 ML (XYLOCAINE) AMP ONE (18:03)
[2019-01-13 20:25] VITALS: BP 139/70
== END 2019-01-13 20:25 | disposition home or self-care (01) ==
LOC: SDC 17:30
PROVIDERS: ATTEND Physician Assistant
DX: N39.0 Urinary tract infection, site not specified (principal); R41.0 Disorientation, unspecified
CPT/HCPCS: 96360; 96367

== ENCOUNTER 2019-01-16 15:02 | Emergency (ER) | payer MEDICARE, MEDICAID ==
[~2019-01-16] VITALS: Ht 167.6 cm; Wt 72.6 kg
--- OUTSIDE RECORDS SUMMARY | 2019-01-16 15:08 | XMS REPORT | Continuity of Care Document ---
Author Author [facility] Organization 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, UNSPECIFIED 11/12/2015 DEL EMYERS, LLOYD Patten Ot I10 ESSENTIAL (PRIMARY) HYPERTENSION [...] 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 08/28/2018 HUGO MEYERS, ERIN De Luna Ot S42.291A OTH DISP FX OF UPPER END OF RIGHT HUMERU 08/28/2018 ERIN ARIAS MD, Ot W19.XXXA UNSPECIFIED FALL, INITIAL ENCOUNTER 08/28/2018 ERIN ARIAS MD, Ot 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 08/28/2018 ERIN ARIAS MD, Ot Z87.440 PERSONAL HISTORY OF URINARY (TRACT) INFE 08/28/2018 ERIN ARIAS MD, Ot Z87.448 PERSONAL HISTORY OF OTHER DISEASES OF UR 08/28/2018 ERIN ARIAS MD, Ot Z87.891 PERSONAL HISTORY OF NICOTINE DEPENDENCE 08/28/2018 ERIN ARIAS MD, Ot Z88.8 ALLERGY STATUS TO OT DRUG/MEDS/BIOL SUB 01/08/2019 GAGE HENAO MD Ot F03.90 UNSPECIFIED DEMENTIA WITHOUT BEHAVIORAL 01/08/2019 GAGE HENAO MD, Ot F32.9 MAJOR DEPRESSIVE DISORDER, SINGLE EPISOD 01/08/2019 GAGE HENAO MD Ot I10 ESSENTIAL (PRIMARY) HYPERTENSION 01/08/2019 GAGE HENAO MD, Ot J44.9 CHRONIC OBSTRUCTIVE PULMONARY DISEASE, U 01/08/2019 GAGE HENAO MD, Ot M06.9 RHEUMATOID ARTHRITIS, UNSPECIFIED 01/08/2019 GAGE HENAO MD Ot M19.011 PRIMARY OSTEOARTHRITIS, RIGHT SHOULDER 01/08/2019 GAGE HENAO MD Ot M54.2 CERVICALGIA 01/08/2019 GAGE HENAO MD, Ot M54.5 LOW BACK PAIN 01/08/2019 GAGE HENAO MD Ot 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 01/08/2019 GAGE HENAO MD, Ot R40.2142 COMA SCALE, EYES OPEN, SPONTANEOUS, EMR 01/08/2019 GAGE HENAO MD, Ot R40.2252 COMA SCALE, BEST VERBAL RESPONSE, ORIENT 01/08/2019 GAGE HENAO MD, Ot R40.2362 COMA SCALE, BEST MOTOR RESPONSE, OBEYS C 01/08/2019 GAGE HENAO MD, Ot S09.90XA UNSPECIFIED INJURY OF HEAD, INITIAL ENCO 01/08/2019 AGGE HENAO MD, Ot S70.01XA CONTUSION OF RIGHT HIP, INITIAL ENCOUNTE 01/08/2019 GAGE HENAO MD Ot W01.198A FALL SAME LEV FROM SLIP/TRIP W STRIKE AG 01/08/2019 GAGE HENAO MD, Ot Y92.[address] [facility] [address] IN [facility] NON-INSTITUT (PRIVATE 01/08/2019 GAGE HENAO MD, Ot Z79.51 ASSISTED (CURRENT) USE OF INHALED STERO 01/08/2019 GAGE HENAO MD, Ot Z87.440 PERSONAL HISTORY OF URINARY (TRACT) INFE 01/08/2019 GAGE HENAO MD, Ot Z87.448 PERSONAL HISTORY OF OTHER DISEASES OF UR 01/08/2019 GAGE HENAO MD, Ot Z87.891 PERSONAL HISTORY OF NICOTINE DEPENDENCE 01/08/2019 GAGE HENAO MD, Ot Z88.8 ALLERGY STATUS TO [facility] DRUG/MEDS/BIOL SUB 01/08/2019 GAGE HENAO MD Ot Z98.890 OTHER SPECIFIED POSTPROCEDURAL STATES 01/08/2019 GAGE HENAO MD Ot Z99.81 DEPENDENCE ON SUPPLEMENTAL OXYGEN 01/11/2019 GAGE HENAO MD Ot F03.90 UNSPECIFIED DEMENTIA WITHOUT BEHAVIORAL 01/11/2019 GAGE HENAO MD Ot F32.9 MAJOR DEPRESSIVE DISORDER, SINGLE EPISOD 01/11/2019 GAGE HENAO MD Ot I10 ESSENTIAL (PRIMARY) HYPERTENSION 01/11/2019 GAGE HENAO MD, Ot J44.9 CHRONIC OBSTRUCTIVE PULMONARY DISEASE, U 01/11/2019 GAGE HENAO MD Ot M06.9 RHEUMATOID ARTHRITIS, UNSPECIFIED 01/11/2019 GAGE HENAO MD Ot M19.011 PRIMARY OSTEOARTHRITIS, RIGHT SHOULDER 01/11/2019 GAGE HENAO MD Ot M54.2 CERVICALGIA 01/11/2019 GAGE HENAO MD Ot M54.5 LOW BACK PAIN 01/11/2019 GAGE HENAO MD Ot 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 01/11/2019 GAGE HENAO MD Ot R40.2142 COMA SCALE, EYES OPEN, SPONTANEOUS, EMR 01/11/2019 GAGE HENAO MD, Ot R40.2252 COMA SCALE, BEST VERBAL RESPONSE, ORIENT 01/11/2019 GAGE HENAO MD, Ot R40.2362 COMA SCALE, BEST MOTOR RESPONSE, OBEYS C 01/11/2019 GAGE HENAO MD, Ot S09.90XA UNSPECIFIED INJURY OF HEAD, INITIAL ENCO 01/11/2019 GAGE HENAO MD, Ot S70.01XA CONTUSION OF RIGHT HIP, INITIAL ENCOUNTE 01/11/2019 GAGE HENAO MD Ot W01.198A FALL SAME LEV FROM SLIP/TRIP W STRIKE AG 01/11/2019 GAGE HENAO MD Ot Y92.[address] [facility] [address] IN [facility] NON-INSTITUT (PRIVATE 01/11/2019 GAGE HENAO MD Ot 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 01/11/2019 GAGE HENAO MD Ot Z87.440 PERSONAL HISTORY OF URINARY (TRACT) INFE 01/11/2019 GAGE HENAO MD Ot Z87.448 PERSONAL HISTORY OF OTHER DISEASES OF UR 01/11/2019 GAGE HENAO MD Ot Z87.891 PERSONAL HISTORY OF NICOTINE DEPENDENCE 01/11/2019 GAGE HENAO MD Ot Z88.8 ALLERGY STATUS TO OT DRUG/MEDS/BIOL SUB 01/11/2019 GAGE HENAO MD Ot Z98.890 OTHER SPECIFIED POSTPROCEDURAL STATES 01/11/2019 GAGE HENAO MD Ot Z99.81 DEPENDENCE ON SUPPLEMENTAL OXYGEN 01/13/2019 LLOYD MATHIS MD Ot V76.12 OTH SCREEN MAMMO-MALIGN NEOPLASM OF NAYELY 01/13/2019 LLOYD MATHIS MD Ot 331.9 CEREB DEGENERATION NOS 01/13/2019 LLOYD MATHIS MD Ot V15.88 HISTORY OF FALL 01/13/2019 Ot 443.9 PERIPH VASCULAR DIS NOS 01/13/2019 Ot 707.15 ULCER OF OTHER PART OF FOOT 01/13/2019 LLOYD MATHIS MD Ot J44.9 CHRONIC OBSTRUCTIVE PULMONARY DISEASE, U 01/14/2019 GAGE HENAO MD, Ot F03.90 UNSPECIFIED DEMENTIA WITHOUT BEHAVIORAL 01/14/2019 GAGE HENAO MD, Ot F32.9 MAJOR DEPRESSIVE DISORDER, SINGLE EPISOD 01/14/2019 GAGE HENAO MD, Ot I10 ESSENTIAL (PRIMARY) HYPERTENSION 01/14/2019 GAGE HENAO MD, Ot J44.9 CHRONIC OBSTRUCTIVE PULMONARY DISEASE, U 01/14/2019 GGAE HENAO MD, Ot M06.9 RHEUMATOID ARTHRITIS, UNSPECIFIED 01/14/2019 GAGE HENAO MD, Ot M19.011 PRIMARY OSTEOARTHRITIS, RIGHT SHOULDER 01/14/2019 GAGE HENAO MD, Ot M54.2 CERVICALGIA 01/14/2019 GAGE HENAO MD, Ot M54.5 LOW BACK PAIN 01/14/2019 GAGE HENAO MD, Ot 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 01/14/2019 GAGE HENAO MD, Ot R40.2142 COMA SCALE, EYES OPEN, SPONTANEOUS, EMR 01/14/2019 GAGE HENAO MD, Ot R40.2252 COMA SCALE, BEST VERBAL RESPONSE, ORIENT 01/14/2019 GAGE HENAO MD, Ot R40.2362 COMA SCALE, BEST MOTOR RESPONSE, OBEYS C 01/14/2019 GAGE HENAO MD, Ot S09.90XA UNSPECIFIED INJURY OF HEAD, INITIAL ENCO 01/14/2019 GAGE HENAO MD, Ot S70.01XA CONTUSION OF RIGHT HIP, INITIAL ENCOUNTE 01/14/2019 GAGE HENAO MD Ot W01.198A FALL SAME LEV FROM SLIP/TRIP W STRIKE AG 01/14/2019 GAGE HENAO MD, Ot Y92.[address] [facility] [address] IN [facility] NON-INSTITUT (PRIVATE 01/14/2019 GAGE HENAO MD, Ot 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 01/14/2019 GAGE HENAO MD, Ot Z87.440 PERSONAL HISTORY OF URINARY (TRACT) INFE 01/14/2019 GAGE HENAO MD, Ot Z87.448 PERSONAL HISTORY OF OTHER DISEASES OF UR 01/14/2019 GAGE HENAO MD, Ot Z87.891 PERSONAL HISTORY OF NICOTINE DEPENDENCE 01/14/2019 GAGE HEANO MD, Ot Z88.8 ALLERGY STATUS TO OTH DRUG/MEDS/BIOL SUB 01/14/2019 GAGE HENAO MD, Ot Z98.890 OTHER SPECIFIED POSTPROCEDURAL STATES 01/14/2019 GAGE HENAO MD, Ot Z99.81 DEPENDENCE ON SUPPLEMENTAL OXYGEN 01/14/2019 CHARY KIRK Ot N39.0 URINARY TRACT INFECTION, SITE NOT SPECIF 01/14/2019 CHARY KIRK Ot R41.0 DISORIENTATION, UNSPECIFIED Procedures Code Description Performed By Performed On [...] or plasma urea nitrogen/creatinine mass ratio 38 NR Serum or plasma creatinine measurement with calculation of estimated glomerular filtration rate 52 NR Serum or plasma glucose measurement (mass/volume) 98 [...] culture - 12/18/17 13:35 Bacterial urine culture [id number] NRG COLONY COUNT 10,000/ML - 100,000/ML NRG [...] plasma calcium measurement (mass/volume) 9.6 mg/dL 8.5-10.1 Complete blood count (CBC) with automated white blood cell (WBC) differential - 01/12/19 19:17 Blood leukocytes automated count (number/volume) 15.4 10*3/uL 4.3-11.0 Blood erythrocytes automated count (number/volume) 3.73 10*6/uL 4.35-5.85 Venous blood hemoglobin measurement (mass/volume) 11.7 g/dL 11.5-16.0 Blood hematocrit (volume fraction) 37 % 35-52 Automated erythrocyte mean corpuscular volume 99 [foz_us] 80-99 Automated erythrocyte mean corpuscular hemoglobin (mass per erythrocyte) 31 pg 25-34 Automated erythrocyte mean corpuscular hemoglobin concentration measurement ( mass/volume) 32 g/dL 32-36 Automated erythrocyte distribution width ratio 16.6 % 10.0-14.5 Automated blood platelet count (count/volume) 225 10*3/uL 130-400 Automated blood platelet mean volume measurement 8.7 [foz_us] 7.4-10.4 Automated blood neutrophils/100 leukocytes 86 % 42-75 Automated blood lymphocytes/100 leukocytes 7 % 12-44 Blood monocytes/100 leukocytes 7 % 0-12 Automated blood eosinophils/100 leukocytes 0 % 0-10 Automated blood basophils/100 leukocytes 0 % 0-10 Blood neutrophils automated count (number/volume) 13.2 10*3 1.8-7.8 Blood lymphocytes automated count (number/volume) 1.1 10*3 1.0-4.0 Blood monocytes automated count (number/volume) 1.1 10*3 0.0-1.0 Automated eosinophil count 0.0 10*3/uL 0.0-0.3 Automated blood basophil count (count/volume) 0.0 10*3/uL 0.0-0.1 Comprehensive metabolic panel - 01/12/19 19:17 Serum or plasma sodium measurement (moles/volume) 138 mmol/L 135-145 Serum or plasma potassium measurement (moles/volume) 3.7 mmol/L 3.6-5.0 Serum or plasma chloride measurement (moles/volume) 99 mmol/L 98-107 Carbon dioxide 28 mmol/L 21-32 Serum or plasma anion gap determination (moles/volume) 11 mmol/L 5-14 Serum or plasma urea nitrogen measurement (mass/volume) 62 mg/dL 7-18 Serum or plasma creatinine measurement (mass/volume) 1.60 mg/dL 0.60-1.30 Serum or plasma urea nitrogen/creatinine mass ratio 39 NRG Serum or plasma creatinine measurement with calculation of estimated glomerular filtration rate 30 NRG Serum or plasma glucose measurement (mass/volume) 115 mg/dL 70-105 Serum or plasma calcium measurement (mass/volume) 9.8 mg/dL 8.5-10.1 Serum or plasma total bilirubin measurement (mass/volume) 0.4 mg/dL 0.1-1.0 Serum or plasma alkaline phosphatase measurement (enzymatic activity/volume) 63 U/L 40-136 Serum or plasma aspartate aminotransferase measurement (enzymatic activity/ volume) 16 U/L 5-34 Serum or plasma alanine aminotransferase measurement (enzymatic activity/volume ) 11 U/L 0-55 Serum or plasma protein measurement (mass/volume) 6.0 g/dL 6.4-8.2 Serum or plasma albumin measurement (mass/volume) 3.5 g/dL 3.2-4.5 CALCIUM CORRECTED 10.2 mg/dL 8.5-10.1 Serum or plasma C reactive protein measurement (mass/volume) - 01/12/19 19:17 Serum or plasma C reactive protein measurement (mass/volume) 4.10 mg /dL 0.00-0.50 Serum or plasma lithium measurement (moles/volume) - 01/12/19 19:17 BNP level 38.6 pg/mL <100.0 Blood manual differential performed detection - 01/12/19 19:17 Blood monocytes/100 leukocytes 5 % NRG Manual blood segmented neutrophils/100 leukocytes 81 % NRG Blood band neutrophils/100 leukocytes 0 % NRG Manual blood lymphocytes/100 leukocytes 13 % NRG Manual eosinophils/100 leukocytes in nose 0 % NRG Manual blood basophils/100 leukocytes 0 % NRG Blood lymphocytes variant/100 leukocytes 1 % NRG Blood erythrocyte morphology finding identification NORMAL NRG Complete urinalysis with reflex to culture - 01/12/19 20:15 Urine color determination YELLOW NRG Urine clarity determination SLIGHTLY CLOUDY NRG Urine pH measurement by test strip 5 5-9 Specific gravity of urine by test strip 1.020 1.016- 1.022 Urine protein assay by test strip, semi-quantitative 3+ NEGATIVE Urine glucose detection by automated test strip NEGATIVE NEGATIVE Erythrocytes detection in urine sediment by light microscopy 4+ NEGATIVE Urine ketones detection by automated test strip NEGATIVE NEGATIVE Urine nitrite detection by test strip NEGATIVE NEGATIVE Urine total bilirubin detection by test strip NEGATIVE NEGATIVE Urine urobilinogen measurement by automated test strip (mass/volume) NORMAL NORMAL Urine leukocyte esterase detection by dipstick 3+ NEGATIVE Automated urine sediment erythrocyte count by microscopy (number/high power field) [HPF] NRG Automated urine sediment leukocyte count by microscopy (number/high power field ) > [HPF] NRG Bacteria detection in urine sediment by light microscopy LARGE NRG Squamous epithelial cells detection in urine sediment by light microscopy 2-5 NRG Crystals detection in urine sediment by light microscopy NONE NRG Casts detection in urine sediment by light microscopy NONE NRG Mucus detection in urine sediment by light microscopy NEGATIVE NRG Complete urinalysis with reflex to culture YES NRG Yeast detection in urine sediment by light microscopy FEW NRG Bacterial urine culture - 01/12/19 20:15 Bacterial urine culture YEAST NRG COLONY COUNT . NRG FTX;REPORTABLE 10,000 CFU/ML NRG Encounters ACCT No. Visit Date/Time Discharge Status Pt. Type Provider Facility Loc./Unit Complaint [id number] 01/13/2019 17:30:00 01/13/2019 20:25:00 DIS [facility] [id number] 01/12/2019 18:45:00 01/12/2019 23:16:00 DIS Emergency CHRISTO PRASAD MD [facility] ER LOW OXYGEN [id number] 01/08/2019 20:15:00 01/08/2019 22:05:00 DIS Outpatient GAGE HENAO MD [facility] ER FALL [id number] 08/26/2018 10:04:00 08/26/2018 13:30:00 DIS Emergency ERIN ARIAS MD [facility] ER FALL [id number] 12/18/2017 17:20:00 12/20/2017 14:05:00 DIS Inpatient TAZ BOYD MD [facility] 4TH UTI,DELERIUM HYPOACTIVE [id number] 08/13/2016 09:51:00 08/13/2016 23:59:59 CLS Outpatient LLOYD MATHIS MD [facility] RT COPD [id number] 02/22/2016 14:19:00 02/22/2016 17:45:00 DIS Emergency ERIN ARIAS MD [facility] ER LOW O2 [id number] 11/11/2015 13:47:00 11/12/2015 13:00:00 DIS Inpatient LLOYD MATHIS MD [facility] 4TH UTI;FEVER [id number] 04/03/2015 13:05:00 04/20/2015 14:00:00 DIS Outpatient SHANICE RODRIGUEZ MD [facility] WOUNDCARE [id number] 03/06/2015 12:43:00 03/12/2015 15:10:00 DIS Inpatient LLOYD MATHIS MD [facility] SURGICAL SEPSIS UTI [id number] 10/20/2013 14:54:00 10/20/2013 23:59:59 CLS Outpatient LLOYD MATHIS MD [facility] RAD FALLS [id number] 07/25/2013 08:30:00 07/25/2013 23:59:59 CLS Outpatient LLOYD MATHIS MD [facility] RAD SCREENING [id number] 02/13/2015 11:55:00 Document Registration [id number] 01/20/2012 14:22:00 Document Registration [id number] 07/07/2011 10:53:00 Document Registration [id number] 02/19/2018 00:00:00 Document Registration
[2019-01-16] MEDS ORDERED: PANTOPRAZOLE 40 MG (PROTONIX) VIAL IV ONE (15:30)
[2019-01-16] MEDS ORDERED: ONDANSETRON 4 MG/2 ML (SDV) Z0FRAN IVP ONE (15:30)
[2019-01-16] MEDS ORDERED: FAMOTIDINE 20MG/2ML IV (PEPCID) IVP ONE (15:30)
[2019-01-16] MEDS ORDERED: TRANEXAMIC ACID INJECTION 1,000 MG in NS (IVPB) 250 ML IV SCH (15:45)
[2019-01-16] MEDS ORDERED: TRANEXAMIC ACID INJECTION 1,000 MG in D5W 100 ML IVPB 100 ML IV ONE (15:45)
[2019-01-16 16:09] LABS: BASOPHILS # (AUTO) 0.1 10^3/uL (0.0-0.1); BASOPHILS % (AUTO) 1 % (0-10); EOSINOPHILS % (AUTO) 0 % (0-10); HEMATOCRIT 26 % (35-52); HEMOGLOBIN 8.1 G/DL (11.5-16.0); LYMPHOCYTES # (AUTO) 0.7 X 10^3 (1.0-4.0); LYMPHOCYTES % (AUTO) 3 % (12-44); MEAN CORPUSCULAR HEMOGLOBIN 32 PG (25-34); MEAN CORPUSCULAR HGB CONC 32 G/DL (32-36); MEAN CORPUSCULAR VOLUME 100 FL (80-99); MEAN PLATELET VOLUME 9.2 FL (7.4-10.4); MONOCYTES # (AUTO) 0.8 X 10^3 (0.0-1.0); MONOCYTES % (AUTO) 4 % (0-12); NEUTROPHILS # (AUTO) 19.1 X 10^3 (1.8-7.8); NEUTROPHILS % (AUTO) 93 % (42-75); PLATELET COUNT 252 10^3/uL (130-400); RED CELL DISTRIBUTION WIDTH 16.6 % (10.0-14.5); WHITE BLOOD COUNT 20.6 10^3/uL (4.3-11.0)
[2019-01-16 16:22] LABS: INR 1.8 (0.8-1.4)
[2019-01-16 16:29] LABS: ALBUMIN 2.7 GM/DL (3.2-4.5); BILIRUBIN,TOTAL 0.4 MG/DL (0.1-1.0); CALCIUM 8.5 MG/DL (8.5-10.1); CREATININE SERUM 1.54 MG/DL (0.60-1.30); MAGNESIUM 1.7 MG/DL (1.8-2.4); POTASSIUM 3.6 MMOL/L (3.6-5.0); TOTAL PROTEIN 4.7 GM/DL (6.4-8.2)
[2019-01-16] MEDS ORDERED: NS IV 1000 ML 1,000 ML ONE ×2 (17:00→21:16)
--- NOTE | 2019-01-16 17:00 | NUR ---
PT CLAMMY AND BLOO PRESSURE HAS DECREASED, PHYSICIAN NOTIFIED
[2019-01-16 17:01] LABS: ANISOCYTOSIS SLIGHT; BAND NEUTROPHILS 1 %; BASOPHILS % (MANUAL) 0 %; EOSINOPHILS % (MANUAL) 0 %; HYPERSEGMENTED NEUT MODERATE; LYMPHOCYTES % (MANUAL) 2 %; MONOCYTES % (MANUAL) 3 %; NEUTROPHILS % (MANUAL) 94 %
[2019-01-16 17:02] LABS: ROULEAUX MOD; TOXIC GRANULATION/VACUOLAZATIO 1+
--- NOTE | 2019-01-16 17:02 | Diagnostic Imaging Report ---
INDICATION: Abdominal pain and hypotension. Abdominal distention. COMPARISON: Chest radiograph of 01/12/2019. TECHNIQUE: Single view of the chest was obtained. FINDINGS: There is free air under both hemidiaphragms, more apparent on the right. Increased ill-defined opacities in the right upper lung zone. No pleural effusion or pneumothorax. 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 IMPRESSION: 1. Pneumoperitoneum has developed since prior examination. 2. Increased right upper lobe opacities are likely on the basis of atelectasis. Pneumonia could have this appearance as well in the appropriate setting. The finding of pneumoperitoneum was called to Dr. Poon by Dr. Natan Fitch at 4:59 p.m. on 01/16/2019. Dictated by: Dictated on workstation # [id number]
[2019-01-16] MEDS ORDERED: PIPERACILLIN/TAZOBACTAM (BULK) 4.5 GM in NS (IVPB) 100 ML IV ONE (17:30)
--- NOTE | 2019-01-16 17:39 | NUR ---
PT IS MORE ALERT AND TALKING AT THIS TIME, PT SPEAKING TO NEICE.
--- NOTE | 2019-01-16 18:42 | Diagnostic Imaging Report ---
PROCEDURE: CT chest, abdomen and pelvis without contrast. TECHNIQUE: Multiple contiguous axial images were obtained through the chest, abdomen and pelvis without the use of intravenous contrast. INDICATION: Abdominal pain with coffee-ground emesis. Hypotension. COMPARISON: Chest radiograph of earlier the same day. FINDINGS: CT chest: Respiratory motion mildly limits assessment of the lungs. Allowing for this, centrilobular groundglass opacities are present in the right lower lobe. No airspace consolidations. No pleural effusion or pneumothorax. Partially imaged subcentimeter calcified right thyroid nodule. No supraclavicular or axillary lymphadenopathy. No mediastinal, hilar or juxtaphrenic lymphadenopathy. Heart is on the upper limits of normal in size without pericardial effusion. Normal caliber thoracic aorta without features of mediastinal hemorrhage. Age-indeterminate compression fracture of the superior endplate of T12. It does not have definitive acute fracture line and may be subacute to chronic in nature. CT abdomen/pelvis: No free intraperitoneal air or fluid. The suspected free intraperitoneal air on radiograph corresponded to an air-filled loop of colon interposed between the liver and right hemidiaphragm. Assessment of the abdominal viscera is mildly limited without IV contrast. Allowing for this, the unenhanced liver, spleen and pancreas are grossly normal. Gallbladder is distended with a small amount of layering material likely sludge or small gallstones. Multiple bilateral renal cysts are present. No renal or ureteral calculi. Mild atrophy of the left kidney may relate to chronic renal insufficiency. Urinary bladder is normally filled. Uterus is likely surgically absent. No concerning adnexal mass. The stomach is filled with fluid and there is no wall thickening; however, the second portion of the duodenum has wall thickening and intraluminal hyperdensities which may represent an ulcer with a small amount of blood products present. A small amount of intraluminal hyperdensity is also present in the jejunum which may represent blood products. No bowel obstruction. No pericolonic inflammatory changes. Diffuse osseous demineralization. Degenerative changes of both hips. IMPRESSION: CT chest: 1. Bronchiolitis within the right lower lobe is most frequently seen in the setting of infection or aspiration. 2. No pneumomediastinum or pneumothorax. 3. Age-indeterminate mild superior endplate compression deformity of the T12 vertebral body. CT abdomen/pelvis: 1. Features suggest a nonperforated ulcer in the second portion of the duodenum with probable blood products within the lumen. 2. No free intraperitoneal air. The suspected free air seen on chest radiograph is secondary to air-filled loop of colon interposed between the liver and right hemidiaphragm. Dictated by: Dictated on workstation # [id number]
[2019-01-16] MEDS ORDERED: PIPERACILLIN/TAZO 4.5 GM VIAL (ZOSYN) IV ONE (18:46)
[2019-01-16] MEDS ORDERED: NS (IVPB) 100 ML ONE (18:46)
--- NOTE | 2019-01-16 19:27 | ED General ---
General Chief Complaint: Abdominal/GI Problems Stated Complaint: N/V Nursing Triage Note: PT ARRIVED VIA EMS WITH C/O ABD PAIN, COFFEE GROUND EMESIS AND HYPOTENSION. PT NOT ACTING SELF PER FAMILY OR STAFF. ABD IS DISTENDED Nursing Sepsis Screen: Possible Sepsis Risk Source of Information: Patient, EMS, Family, Retirement Records, Old Records Exam Limitations: Other (dementia) History of Present Illness Date Seen by Provider: Jan 16, 2019 Time Seen by Provider: 15:08 Initial Comments This 88-year-old woman presents to the emergency room with coffee-ground emesis , tachycardia, and hypotension. She presents from [facility]. Staff there reported she had not been acting herself for the past few days. Coffee-ground emesis started this morning. EMS reports her blood pressure initially was 90s over 50s. They started IV fluids and blood pressure continued to decline despite fluid resuscitation. Blood pressure was 70s over 50s upon arrival. A 500 mL bag of normal saline is running at arrival. Patient has chronic hypoxia from COPD and wears 2 L nasal cannula. Patient's heart rate is noted to be in the 120s. Mentation per staff is at baseline. Patient does have dementia and is chronically confused. There is no known history of ulcers or GI bleed. She does not take any blood thinning medications. Patient was seen in this ER on January 12 and diagnosed with urinary tract infection. Hemoglobin was 11.7 at that time. She was placed on antibiotics and sent home. Vital signs as documented at that time were within normal limits. Patient does not appear to be taking any blood thinning medications. CODE STATUS is listed as full code. This was confirmed with patient's DURABLE POWER OF ROLL FILLER, her son Kraig Bower. Allergies and Home Medications Allergies Coded Allergies: meperidine (Unverified Allergy, Mild, 01/27/10) Home Medications Acetaminophen 500 Mg Tablet, 500 MG PO 0800,1400,2000, (Reported) Albuterol Sulfate 2.5 Mg/3 Ml Vial.neb, 2.5 MG NEB Q2H PRN for SHORTNESS OF BREATH, (Reported) Alendronate Sodium 70 Mg Tablet, 70 MG PO Th, (Reported) Amlodipine Besylate 5 Mg Tablet, 5 MG PO DAILY, (Reported) Bacillus Coagulans 1 Each Tab.chew, 1 EACH PO AC Prescribed by: TAZ BOYD on 12/20/17 1052 Buspirone HCl 10 Mg Tablet, 10 MG PO TID, (Reported) Calcium Carbonate/Vitamin D3 1 Each Tablet, 1 TAB PO DAILY, (Reported) Cefdinir 300 Mg Capsule, 300 MG PO BID Prescribed by: TAZ BOYD on 12/20/17 1052 Cefdinir 300 Mg Capsule, 300 MG PO BID Prescribed by: CHRISTO PRASAD on 01/12/19 2305 Cholecalciferol (Vitamin D3) 1,000 Unit Capsule, 1,000 UNIT PO DAILY, (Reported) Docusate Sodium 100 Mg Capsule, 100 MG PO BID, (Reported) Docusate Sodium 100 Mg Capsule, 100 MG PO DAILY Prescribed by: ERIN NGUYEN on 08/26/18 1300 Donepezil HCl 10 Mg Tablet, 10 MG PO HS, (Reported) Dorzolamide HCl/Timolol Maleat 10 Ml Drops, 1 DROP OU BID, (Reported) Enalapril Maleate 10 Mg Tablet, 10 MG PO BID, (Reported) Fluticasone/Salmeterol 1 Each Blst.w.dev, 1 PUFF IH BID, (Reported) Folic Acid 1 Mg Tablet, 1 MG PO DAILY, (Reported) Guaifenesin 600 Mg Tab.er.12h, 600 MG PO TID, (Reported) Guaifenesin/Dextromethorphan 5 Ml Syrup, 10 ML PO Q4H PRN for COUGH, (Reported) Hydrochlorothiazide 25 Mg Tablet, 25 MG PO DAILY, (Reported) Hydrocodone/Acetaminophen 1 Each Tablet, 1-2 EACH PO Q6H PRN for PAIN-MODERATE Use while on hydrocodone. Hold if loose stools. Prescribed by: ERIN NGUYEN on 08/26/18 1300 Latanoprost 2.5 Ml Drops, 1 DROP OU HS, (Reported) Loratadine 10 Mg Tablet, 10 MG PO DAILY PRN for ALLERGIES, (Reported) Lorazepam 0.5 Mg Tablet, 0.5 MG PO Q8H PRN for ANXIETY, (Reported) Memantine HCl 28 Mg Cap.spr.24, 28 MG PO DAILY, (Reported) Menthol/Camphor 4 Gm Oint...g., TP BID, (Reported) APPLY AND MASSAGE INTO RT SHOULDER Methotrexate Tablet 2.5 Mg Tablet, 15 MG PO Th, (Reported) TAKES 6 (2.5 MG) TABLETS Metoprolol Succinate 50 Mg Tab.er.24h, 50 MG PO DAILY, (Reported) Multivitamin 1 Each Tablet, 1 TAB PO DAILY, (Reported) Polymyxin B Sulf/Trimethoprim 10 Ml Drops, 10 ML OP Q6H Prescribed by: TAZ BOYD on 12/20/17 1104 Solifenacin Succinate 5 Mg Tablet, 5 MG PO DAILY, (Reported) Tramadol HCl 50 Mg Tablet, 25-50 MG PO Q8H PRN for PAIN-MODERATE, (Reported) Tramadol HCl 50 Mg Tablet, 50 MG PO 1100,1700, (Reported) Patient Home Medication List Home Medication List Reviewed: Yes Review of Systems Review of Systems Constitutional: no symptoms reported EENTM: no symptoms reported Respiratory: no symptoms reported Cardiovascular: see HPI Gastrointestinal: see HPI Genitourinary: see HPI : No Musculoskeletal: no symptoms reported Skin: no symptoms reported Psychiatric/Neurological: See HPI Hematologic/Lymphatic: See HPI Immunological/Allergic: no symptoms reported Past Cxbudam-Yujdpj-Waagts Hx Patient Social History Type Used: Cigarettes Former Smoker, Quit: Nov 30, 2001 Recent Foreign Travel: No Contact w/Someone Who Travel: No Recent Infectious Disease Expo: No Recent Hopitalizations: No Immunizations Up To Date Tetanus Booster (TDap): Unknown Date of Pneumonia Vaccine: Jul 31, 2008 Date of Influenza Vaccine: Sep 19, 2017 Seasonal Allergies Seasonal Allergies: No Past Medical History Surgeries: Yes (HEMORROID SURGERY, AND BILAT ARTHROSCOPIC KNEE) Eye Surgery Respiratory: Yes (nocturnal hypoxia requiring supplemental oxygen) COPD Cardiac: Yes Hypertension, Valvular Heart Disease Neurological: Yes (ALZHEIMERS) Dementia : No Reproductive Disorders: No Female Reproductive Disorders: Denies 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 No Pertinent Family Hx Physical Exam Vital Signs Vital Signs - First Documented 01/16/19 15:28 Temp 96.1 Pulse 121 Resp 18 B/P (MAP) 102/55 (71) Pulse Ox 100 O2 Delivery Room Air Capillary Refill : Less Than 3 Seconds Height, Weight, BMI Height: 5'6.00" Weight: 160lbs. 5.0oz. [id number]; 27.4 BMI Method:Estimated General Appearance: No Apparent Distress, WD/WN HEENT: PERRL/EOMI, Normal ENT Inspection, Pharynx Normal Neck: Normal Inspection Respiratory: Lungs Clear, Normal Breath Sounds, No Accessory Muscle Use, No Respiratory Distress Cardiovascular: No Edema, No Murmur, Tachycardia Gastrointestinal: Normal Bowel Sounds, Soft, Tenderness (mild generalized tenderness) Extremity: Normal Inspection, No Pedal Edema Neurologic/Psychiatric: Alert, No Motor/Sensory Deficits, Normal Mood/Affect, obstetrics gyn II-XII Norm as Tested, Other (oriented to baseline per family and correction staff) Skin: Warm/Dry, Pallor Focused Exam Lactate Level 01/16/19 18:35: Lactic Acid Level 1.07 Lactic Acid Level Laboratory Tests Test 01/16/19 18:35 Lactic Acid Level 1.07 MMOL/L (0.50-2.00) Progress/Results/Core Measures Suspected Sepsis Recent Fever Within 48 Hours: No Infection Criteria Present: Documented Infection New/Unexplained Altered Menta: No Sepsis Screen: Possible Sepsis Risk SIRS Temperature:96.1 Pulse: 121 Respiratory Rate: 18 Laboratory Tests 01/16/19 15:51: White Blood Count 20.6H Blood Pressure 102 /55 Mean: 71 01/16/19 18:35: Lactic Acid Level 1.07 Laboratory Tests 01/16/19 15:51: Creatinine 1.54H, INR Comment 1.8H, Platelet Count 252, Total Bilirubin 0.4 Results/Orders Lab Results Laboratory Tests Test 01/16/19 15:51 01/16/19 18:35 Range/Units White Blood Count 20.6 H 4.3-11.0 10^3/uL Red Blood Count 2.57 L 4.35-5.85 10^6/uL Hemoglobin 8.1 #L 11.5-16.0 G/DL Hematocrit 26 L 35-52 % Mean Corpuscular Volume 100 H 80-99 FL Mean Corpuscular Hemoglobin 32 25-34 PG Mean Corpuscular Hemoglobin Concent 32 32-36 G/DL Red Cell Distribution Width 16.6 H 10.0-14.5 % Platelet Count 252 130-400 10^3/uL Mean Platelet Volume 9.2 7.4-10.4 FL Neutrophils (%) (Auto) 93 H 42-75 % Lymphocytes (%) (Auto) 3 L 12-44 % Monocytes (%) (Auto) 4 0-12 % Eosinophils (%) (Auto) 0 0-10 % Basophils (%) (Auto) 1 0-10 % Neutrophils # (Auto) 19.1 H 1.8-7.8 X 10^3 Lymphocytes # (Auto) 0.7 L 1.0-4.0 X 10^3 Monocytes # (Auto) 0.8 0.0-1.0 X 10^3 Eosinophils # (Auto) 0.0 0.0-0.3 10^3/uL Basophils # (Auto) 0.1 0.0-0.1 10^3/uL Neutrophils % (Manual) 94 % Lymphocytes % (Manual) 2 % Monocytes % (Manual) 3 % Eosinophils % (Manual) 0 % Basophils % (Manual) 0 % Band Neutrophils 1 % Hypersegmented Neutrophils MODERATE Toxic Granulation 1+ Anisocytosis SLIGHT Rouleau MOD Prothrombin Time 21.0 H 12.2-14.7 SEC INR Comment 1.8 H 0.8-1.4 Activated Partial Thromboplast Time 45 H 24-35 SEC Sodium Level 140 135-145 MMOL/L Potassium Level 3.6 3.6-5.0 MMOL/L Chloride Level 101 98-107 MMOL/L Carbon Dioxide Level 27 21-32 MMOL/L Anion Gap 12 5-14 MMOL/L Blood Urea Nitrogen 94 H 7-18 MG/DL Creatinine 1.54 H 0.60-1.30 MG/DL Estimat Glomerular Filtration Rate 32 BUN/Creatinine Ratio 61 Glucose Level 129 H 70-105 MG/DL Calcium Level 8.5 8.5-10.1 MG/DL Corrected Calcium 9.5 8.5-10.1 MG/DL Magnesium Level 1.7 L 1.8-2.4 MG/DL Total Bilirubin 0.4 0.1-1.0 MG/DL Aspartate Amino Transf (AST/SGOT) 13 5-34 U/L Alanine Aminotransferase (ALT/SGPT) 6 0-55 U/L Alkaline Phosphatase 52 40-136 U/L Troponin I 0.139 <0.028 NG/ML Total Protein 4.7 L 6.4-8.2 GM/DL Albumin 2.7 L 3.2-4.5 GM/DL Lipase 74 8-78 U/L Lactic Acid Level 1.07 0.50-2.00 MMOL/L My Orders Orders - ERIN POON MD Cbc With Automated Diff (01/16/19:) Comprehensive Metabolic Panel (01/16/19) Lipase (01/16/19:) Magnesium (01/16/19:) Protime With Inr (01/16/19) Partial Thromboplastin Time (01/16/19:) Troponin I (01/16/19) Ua Culture If Indicated (01/16/19) Saline Lock/Iv-Start (01/16/19) Ekg Tracing (01/16/19) Monitor-Rhythm Ecg Trace Only (01/16/19) Chest 1 View, Ap/Pa Only (01/16/19:) Red Cells Leukocytes Reduced (01/16/19:) Ondansetron Injection (Zofran Injectio (01/16/19 15:30) Pantoprazole Injection (Protonix Injecti (01/16/19 15:30) Famotidine Injection (Pepcid Injection) (01/16/19 15:30) Type And Screen (01/16/19:) Ns (Ivpb) (Sodium C... W/Tranexamic Acid (01/16/19 15:45) Tranexamic Acid Injection (Cyklokapron I (01/16/19 15:45) Manual Differential (01/16/19 15:51) Ct Chest/Abdomen/Pelvis Wo (01/16/19 16:53) Ns Iv 1000 Ml (Sodium Chloride 0.9%) (01/16/19 17:00) Piperacillin/Tazobactam (Bulk) (Zosyn In (01/16/19 17:30) Blood Culture (01/16/19 18:01) Lactic Acid Analyzer (01/16/19 18:01) Piperacillin Sodium/Tazobactam (Zosyn Vi (01/16/19 18:46) Ns (Ivpb) (Sodium Chloride 0.9% Ivpb Bag (01/16/19 18:46) Fresh Frozen Plasma (01/16/19 19:49) Medications Given in ED Current Medications Medications Dose Ordered Sig/Corby Route Start Time Stop Time Status Last Admin Dose Admin Famotidine 20 mg ONCE ONCE IVP 01/16/19 15:30 01/16/19 15:31 DC 01/16/19 16:05 20 MG Ondansetron HCl 8 mg ONCE ONCE IVP 01/16/19 15:30 01/16/19 15:31 DC 01/16/19 16:04 8 MG Pantoprazole 80 mg ONCE ONCE IV 01/16/19 15:30 01/16/19 15:31 DC 01/16/19 16:05 80 MG Piperacillin Sod/ Tazobactam Sod 4.5 gm STK-MED ONCE IV 01/16/19 18:46 01/16/19 18:51 DC 01/16/19 19:08 4.5 GM Tranexamic Acid 1000 mg/Dextrose 110 ml @ 330 mls/hr ONCE ONCE IV 01/16/19 15:45 01/16/19 16:04 DC 01/16/19 16:23 330 MLS/HR Vital Signs/I&O 01/16/19 15:28 Temp 96.1 Pulse 121 Resp 18 B/P (MAP) 102/55 (71) Pulse Ox 100 O2 Delivery Room Air Capillary Refill : Less Than 3 Seconds Blood Pressure Mean: 71 Progress Note : Progress Note Patient was hypotensive and tachycardic upon arrival. The 500 mL normal saline bolus started by EMS was completed which resuscitated blood pressure. Blood products were immediately ordered. Patient's hemoglobin dropped from 11.7 on January 12 to 8.1 today. Patient received Protonix 80 mg IV and Pepcid 20 mg IV. Additionally a tranexamic acid bolus was administered. The tranexamic acid drip was also initiated but was abandoned in favor of the blood transfusions and antibiotics with limited IV access. Case was discussed with Dr. Dasilva, surgeon maori liaison adviser early in her care. Patient's blood pressure was waxing and waning but the majority of her systolic blood pressure stayed above 90. Altogether she received 3 units of PRBC and one unit of FFP. She had no further coffee-ground emesis while in the ER. CT of the abdomen suggests bleeding duodenal ulcer in the second portion of the duodenum. CT of the chest suggested aspiration. Patient had a WBC of 20,000 and early aspiration pneumonia was suspected. Blood cultures and lactic acid were obtained and initial antibiotic therapy was started with Zosyn. Patient's abnormal EKG was discussed with Dr. Araujo, sensitizer maori liaison adviser. He believes this represents a strain pattern due to hypotension and acute blood loss. It did not seem consistent with ST elevation [place]. There was a subtle elevation in troponin that did not meet critical criteria by our lab range. Dr. Araujo recommended cardiology consultation at the receiving facility. No further interventions were recommended at this time besides blood transfusion. I had extensive conversations with patient's DURABLE POWER OF ROLL FILLER and son, Kraig Bower. He consents to transfer and verbally consented to blood transfusion. Transfer was necessary as [facility] has no bed availability for admission. The hospital is on diversion. We discussed CODE STATUS at length. He would like the patient to remain a full code at this time. Extended family was in the room with the patient and states she is at her baseline mentation. They also are agreeable with transfer to [facility]. ECG Initial ECG Impression Date: Jan 16, 2019 Initial ECG Impression Time: 15:17 Initial ECG Rate: 123 Initial ECG Rhythm: S.Tach Comment Sinus tachycardia with strained pattern. Patient has chronic left bundle branch block which obscures interpretation. Probable LVH with repolarization abnormality. Diagnostic Imaging Diagonstic Imaging: Xray Plain Films/CT/US/NM/MRI: chest Comments Chest x-ray viewed by me and report reviewed. See report below: NAME: JOAQUIM BOWER [facility] REC#: [id number] PT STATUS: REG ER : 1930 PHYSICIAN: ERIN POON MD ADMIT DATE: 01/16/19/ER Signed Date of Exam: 01/16/19 CHEST 1 VIEW, AP/PA ONLY INDICATION: Abdominal pain and hypotension. Abdominal distention. COMPARISON: Chest radiograph of 01/12/2019. TECHNIQUE: Single view of the chest was obtained. FINDINGS: There is free air under both hemidiaphragms, more apparent on the right. Increased ill-defined opacities in the right upper lung zone. No pleural effusion or pneumothorax. 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 IMPRESSION: 1. Pneumoperitoneum has developed since prior examination. 2. Increased right upper lobe opacities are likely on the basis of atelectasis. Pneumonia could have this appearance as well in the appropriate setting. The finding of pneumoperitoneum was called to Dr. Poon by Dr. Natan Gilman at 4:59 p.m. on 01/16/2019. Dictated by: Dictated on workstation # [id number] Dict: 01/16/19 1653 Trans: 01/16/191907 Interpreted by: NATAN GILMAN MD Electronically signed by: NATAN GILMAN MD 01/16/191907 Diagonstic Imaging: CT Plain Films/CT/US/NM/MRI: chest, abdomen, pelvis Comments CT chest, abdomen and pelvis viewed by me and report reviewed. Discussed with radiologist. See report below: NAME: JOAQUIM BOWER [facility] REC#: [id number] PT STATUS: REG ER : 1930 PHYSICIAN: ERIN POON MD ADMIT DATE: 01/16/19/ER Signed Date of Exam: 01/16/19 CT CHEST/ABDOMEN/PELVIS WO PROCEDURE: CT chest, abdomen and pelvis without contrast. TECHNIQUE: Multiple contiguous axial images were obtained through the chest, abdomen and pelvis without the use of intravenous contrast. INDICATION: Abdominal pain with coffee-ground emesis. Hypotension. COMPARISON: Chest radiograph of earlier the same day. FINDINGS: CT chest: Respiratory motion mildly limits assessment of the lungs. Allowing for this, centrilobular groundglass opacities are present in the right lower lobe. No airspace consolidations. No pleural effusion or pneumothorax. Partially imaged subcentimeter calcified right thyroid nodule. No supraclavicular or axillary lymphadenopathy. No mediastinal, hilar or juxtaphrenic lymphadenopathy. Heart is on the upper limits of normal in size without pericardial effusion. Normal caliber thoracic aorta without features of mediastinal hemorrhage. Age-indeterminate compression fracture of the superior endplate of T12. It does not have definitive acute fracture line and may be subacute to chronic in nature. CT abdomen/pelvis: No free intraperitoneal air or fluid. The suspected free intraperitoneal air on radiograph corresponded to an air-filled loop of colon interposed between the liver and right hemidiaphragm. Assessment of the abdominal viscera is mildly limited without IV contrast. Allowing for this, the unenhanced liver, spleen and pancreas are grossly normal. Gallbladder is distended with a small amount of layering material likely sludge or small gallstones. Multiple bilateral renal cysts are present. No renal or ureteral calculi. Mild atrophy of the left kidney may relate to chronic renal insufficiency. Urinary bladder is normally filled. Uterus is likely surgically absent. No concerning adnexal mass. The stomach is filled with fluid and there is no wall thickening; however, the second portion of the duodenum has wall thickening and intraluminal hyperdensities which may represent an ulcer with a small amount of blood products present. A small amount of intraluminal hyperdensity is also present in the jejunum which may represent blood products. No bowel obstruction. No pericolonic inflammatory changes. Diffuse osseous demineralization. Degenerative changes of both hips. IMPRESSION: CT chest: 1. Bronchiolitis within the right lower lobe is most frequently seen in the setting of infection or aspiration. 2. No pneumomediastinum or pneumothorax. 3. Age-indeterminate mild superior endplate compression deformity of the T12 vertebral body. CT abdomen/pelvis: 1. Features suggest a nonperforated ulcer in the second portion of the duodenum with probable blood products within the lumen. 2. No free intraperitoneal air. The suspected free air seen on chest radiograph is secondary to air-filled loop of colon interposed between the liver and right hemidiaphragm. Dictated by: Dictated on workstation # [id number] Dict: 01/16/191821 Trans: 01/16/191905 Interpreted by: NATAN GILMAN MD Electronically signed by: NATAN GILMAN MD 01/16/191905 Departure Impression Primary Impression: Hypovolemic shock Additional Impressions: Acute blood loss anemia Upper GI bleed Renal insufficiency Dementia Qualified Codes: F03.90 - Unspecified dementia without behavioral disturbance Disposition: XF [facility] HOS[facility] Condition: Improved Transfer Time Spoke to Accepting Phy: 19:20 Transfer Progress Notes Case discussed with Dr. Disla who graciously accepts this patient for transfer. Transfer Facility: [facility] Method of Transfer: EMS Departure-Patient Inst. Referrals: LLOYD MATHIS MD (PCP/Family) Primary Care Physician Copy Copies To 1: LLOYD MATHIS MD, JOSHUA T MD Jan 16, 2019 19:27
[2019-01-16 19:52] VITALS: BP 97/40
--- NOTE | 2019-01-16 20:42 | NUR ---
[facility] contacted for transport to [facility]. RM 255.
[2019-01-16 21:33] VITALS: BP 125/60
[2019-01-16 21:43] VITALS: BP 134/61
== END 2019-01-16 21:45 | disposition short-term general hospital (02) ==
LOC: EDUNIT# 15:02 → ER 15:03
DX: R57.1 Hypovolemic shock (principal); D50.0 Iron deficiency anemia secondary to blood loss (chronic); K92.2 Gastrointestinal hemorrhage, unspecified; N28.9 Disorder of kidney and ureter, unspecified; G30.9 Alzheimer's disease, unspecified; F02.80 Dementia in other diseases classified elsewhere, unspecified severity, without behavioral disturbance, psychotic disturbance, mood disturbance, and anxiety; I10 Essential (primary) hypertension; J44.9 Chronic obstructive pulmonary disease, unspecified; M81.0 Age-related osteoporosis without current pathological fracture; M06.9 Rheumatoid arthritis, unspecified; F32.9 Major depressive disorder, single episode, unspecified; Z87.19 Personal history of other diseases of the digestive system; Z87.440 Personal history of urinary (tract) infections; Z99.81 Dependence on supplemental oxygen; Z88.8 Allergy status to other drugs, medicaments and biological substances; Z79.51 Long term (current) use of inhaled steroids; Z87.891 Personal history of nicotine dependence; Z98.890 Other specified postprocedural states
CPT/HCPCS: 36415; 36430; 71045; 71250; 74176; 80053; 83605; 83690; 83735; 84484; 85007; 85027; 85610; 85730; 86850; 86900; 86901; 86920; 87040; 93005; 93041; 99291